=== PATIENT | male | born 1945 | race Hispanic/Latino ===

== ENCOUNTER 2018-08-31 15:33 | Emergency (ER) | payer MEDICARE, BC ==
[2018-08-31 15:46] VITALS: BP 101/62; RESP 18; O2SAT 98
[2018-08-31 16:01] VITALS: BMI 22.8
[2018-08-31 16:04] VITALS: PULSE 76; TEMP 98
--- NOTE | 2018-08-31 16:26 | ED PDOC ---
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 Patient hit his head on the fender of the car. He sustained a laceration above the right eye. Patient denies loss of consciousness, dizziness, chest pain, palpitation or any other injuries. PMD: Nelson Albert Past Medical History Reviewed: Historical Data, Nursing Documentation, Vital Signs Vital Signs: Last Vital Signs Temp 98 F 08/31/18 16:01 Pulse 76 08/31/18 16:01 Resp 18 08/31/18 16:01 BP 101/62 08/31/18 16:01 Pulse Ox 98 08/31/18 16:01 - Medical History PMH: Arthritis (OSTEO), Bronchitis, Diabetes, HTN, Hypercholesterolemia Denies: Hepatitis, HIV, Seizures, Sexually Transmitted Disease - Surgical History Surgical History: Cholecystectomy - Family History Family History: States: Unknown Family Hx - Social History Current smoker - smoking cessation education provided: No Alcohol: None Drugs: Denies - Immunization History Hx Tetanus Toxoid Vaccination: Yes (2 years ago) Hx Influenza Vaccination: Yes Hx Pneumococcal Vaccination: No - Home Medications Home Medications: Ambulatory Orders Medication Instructions Recorded Alprazolam [Xanax] 0.25 mg PO BID PRN #7 tab 10/06/14 Amlodipine Besylate and Benazepril 1 tab PO DAILY 10/06/14 HCl 5 mg-4 Clotrimazole 1% [Lotrimin AF 1%] 1 gm TP BID #2 bottle 10/06/14 Edluar 10 mg SL HS 10/06/14 Ferrous Fumarate/Folic Acid 1 tab PO DAILY 10/06/14 Glucophage 1,000 mg PO BID 10/06/14 Glucotrol XL 10 mg PO BID 10/06/14 Januvia 100 mg PO DAILY 10/06/14 Lantus 40 unit SC DAILY 10/06/14 Lyrica 100 mg PO BID 10/06/14 Meloxicam 15 mg PO DAILY 10/06/14 Naproxen EC 375 mg PO DAILY 10/06/14 Voltaren Gel 1 applic TOP DAILY 10/06/14 Vytorin 10 mg-40 mg 1 tab PO HS 10/06/14 Naproxen [Naprosyn Tab] 375 mg PO BID PRN #20 tab 12/08/16 - Allergies Allergies/Adverse Reactions: Allergies Allergy/AdvReac Type Severity Reaction Status Date / Time No Known Allergies Allergy Verified 08/31/18 16:01 Review of Systems ROS Statement: Except As Marked, All Systems Reviewed And Found Negative Cardiovascular: Negative for: Chest Pain, Palpitations Skin: Positive for: Other (laceration above the right eye) Neurological: Negative for: Dizziness, Other (LOC) Physical Exam - Reviewed Nursing Documentation Reviewed: Yes Vital Signs Reviewed: Yes - Physical Exam Appears: Positive for: Well, Non-toxic, No Acute Distress Head Exam: Positive for: ATRAUMATIC, NORMOCEPHALIC. Negative for: NORMAL INSPECTION (2cm laceration on right eyebrow, no palpable fracture ) Eye Exam: Positive for: EOMI, Normal appearance, PERRL Neck: Positive for: Normal, Painless ROM, Supple Cardiovascular/Chest: Positive for: Regular Rate, Rhythm. Negative for: Murmur Respiratory: Positive for: Normal Breath Sounds. Negative for: Decreased Breath Sounds, Wheezing, Respiratory Distress Back: Positive for: Normal Inspection (no spinal tenderness or deformity) Extremity: Positive for: Normal ROM, Other (no hip tenderness or deformity). Negative for: Deformity Neurologic/Psych: Positive for: Alert, Oriented (x3), Other (no focal deficits). Negative for: Motor/Sensory Deficits - ECG O2 Sat by Pulse Oximetry: 98 (RA) Pulse Ox Interpretation: Normal Medical Decision Making Medical Decision Making: Time: 1601 Initial Plan: Patient declined stitches so steri strips will be placed on the laceration on the right eyebrow. Provider also advised patient to have CT head, EKG as well as blood work to determine the reason for loss of balance and patient denied. He is awake, alert and oriented to time, place and person. Patient was made aware of the risk involved such as intracranial bleed, arrhythmia and possibly . There is agreement to discharge plan. Return to ED if symptoms persist or worsen. Scribe Attestation: Documented by Wong Singleton, acting as a scribe for Jamel Rocha MD. Provider Scribe Attestation: All medical record entries made by the Scribe were at my direction and personally dictated by me. I have reviewed the chart and agree that the record accurately reflects my personal performance of the history, physical exam, medical decision making, and the department course for this patient. I have also personally directed, reviewed, and agree with the discharge instructions and disposition. Disposition - Clinical Impression Clinical Impression: Facial laceration - Patient ED Disposition Is Patient to be Admitted: No Counseled Patient/Family Regarding: Diagnosis, Need For Followup - Disposition Referrals: Nelson Albert MD [Family Provider] - Disposition: Routine/Home Disposition Time: 16:44 Condition: FAIR Instructions: Wound Care, Preventing Falls in the Older Adult Forms: [employer] (Yoruba)
== END 2018-08-31 17:07 | disposition home or self-care (01) ==
LOC: H.ER 15:33
DX: S01.111A Laceration without foreign body of right eyelid and periocular area, initial encounter (principal); W22.8XXA Striking against or struck by other objects, initial encounter; Y92.89 Other specified places as the place of occurrence of the external cause; E11.9 Type 2 diabetes mellitus without complications; E78.00 Pure hypercholesterolemia, unspecified; I10 Essential (primary) hypertension; Z79.4 Long term (current) use of insulin

== ENCOUNTER 2018-10-18 16:07 | Inpatient (IN) | payer BC, MEDICARE ==
[2018-10-18 16:07] VITALS: BMI 22.8
[2018-10-18] MEDS ORDERED: Sodium Chloride 0.9% 1,000 ML IV STA ×2 (16:46→19:03)
--- NOTE | 2018-10-18 17:06 | ED PDOC ---
HPI: General Adult Time Seen by Provider: 10/18/18 16:21 Chief Complaint (Nursing): Flu-like Symptoms Chief Complaint (Provider): body pains History Per: Patient History/Exam Limitations: no limitations Onset/Duration Of Symptoms: Hrs (today) Current Symptoms Are (Timing): Still Present Additional Complaint(s): Noah Vick is a 73 year old male, with a past medical history of diabetes, HTN and rheumatoid arthritis, who was brought to the emergency department by EMS accompanied by spouse for evaluation of body aches onset today. Patient is complaining of neck pain and bilateral knee pain. Per , patient didn't take his medications yesterday and today. She tried to give him food but she states patient wasn't eating. Patient has been sleeping for the most part of the day and today she tried to get him up but he almost fell while trying to feed him due to the knee pain which prompted her to call the ambulance. Patient denies any cough, nausea, vomit, diarrhea, fall, trauma or head injuries. No further medical complaints. PMD: Nelson Albert Past Medical History Reviewed: Historical Data, Nursing Documentation, Vital Signs Vital Signs: Last Vital Signs Temp 101.8 F H 10/18/18 16:12 Pulse 128 H 10/18/18 16:12 Resp 16 10/18/18 16:12 BP 160/115 H 10/18/18 16:12 Pulse Ox 98 10/18/18 16:12 - Medical History PMH: Arthritis (OSTEO), Bronchitis, Diabetes, HTN, Hypercholesterolemia Denies: Hepatitis, HIV, Seizures, Sexually Transmitted Disease - Surgical History Surgical History: Cholecystectomy - Family History Family History: States: Unknown Family Hx - Social History Current smoker - smoking cessation education provided: No Alcohol: None Drugs: Denies - Immunization History Hx Tetanus Toxoid Vaccination: Yes (2 years ago) Hx Influenza Vaccination: Yes Hx Pneumococcal Vaccination: No - Home Medications Home Medications: Ambulatory Orders Medication Instructions Recorded RX: Amlodipine Besylate/Benazepril 1 tab PO DAILY 10/06/14 [Lotrel 10-40 mg Capsule] RX: Ezetimibe/Simvastatin [Vytorin 1 tab PO HS 10/06/14 10-20 mg Tablet] RX: MetFORMIN [glucoPHAGE] 1,000 mg PO BID 10/06/14 RX: Pregabalin [Lyrica] 150 mg PO Q12 10/06/14 RX: Cyanocobalamin [Vitamin B12 1,000 mcg PO DAILY 10/18/18 1000 mcg Tab] RX: Ergocalciferol (Vitamin D2) 50,000 unit PO MO 10/18/18 [Vitamin D2] RX: Linagliptin [Tradjenta] 5 mg PO DAILY 10/18/18 RX: Zolpidem [Ambien] 5 mg PO HS PRN 10/18/18 RX: Atorvastatin [Lipitor] 10 mg PO HS tab 10/24/18 RX: Enoxaparin [Lovenox] 40 mg SC DAILY syr 10/24/18 RX: Ezetimibe [Zetia] 10 mg PO HS tab 10/24/18 RX: GlipiZIDE SR [Glucotrol XL] 5 mg PO DAILY tab 10/24/18 RX: Lactobacillus Acidophilus 1 cap PO BID cap 10/24/18 [Bacid Acidophilus] RX: Lisinopril [Zestril] 40 mg PO DAILY tab 10/24/18 RX: Naproxen 500 mg PO Q12 tab 10/24/18 RX: Pantoprazole [Protonix Inj] 40 mg IVP DAILY vial 10/24/18 RX: amLODIPine [Norvasc] 10 mg PO DAILY tab 10/24/18 cefTRIAXone 1 gm [Rocephin 1 gram 1 gm IVPB DAILY 6 Days #6 bag 10/24/18 IVPB] - Allergies Allergies/Adverse Reactions: Allergies Allergy/AdvReac Type Severity Reaction Status Date / Time No Known Allergies Allergy Verified 08/31/18 16:01 Review of Systems ROS Statement: Except As Marked, All Systems Reviewed And Found Negative Respiratory: Negative for: Cough Gastrointestinal: Negative for: Nausea, Vomiting, Diarrhea Musculoskeletal: Positive for: Neck Pain, Leg Pain (knee pain) Physical Exam - Reviewed Nursing Documentation Reviewed: Yes Vital Signs Reviewed: Yes - Physical Exam Appears: Positive for: No Acute Distress. Negative for: Well (frail) Head Exam: Positive for: ATRAUMATIC, NORMAL INSPECTION, NORMOCEPHALIC Skin: Positive for: Normal Color, Warm, Dry Eye Exam: Positive for: Normal appearance, EOMI, PERRL Neck: Positive for: Normal, Painless ROM, Supple Cardiovascular/Chest: Positive for: Regular Rate, Rhythm. Negative for: Murmur Respiratory: Positive for: Normal Breath Sounds. Negative for: Respiratory Distress Gastrointestinal/Abdominal: Positive for: Normal Exam, Soft. Negative for: Tenderness, Guarding, Rebound Back: Positive for: Normal Inspection. Negative for: L CVA Tenderness, R CVA Tenderness, Vertebral Tenderness Extremity: Positive for: Tenderness (to bilateral knees), Swelling (with palpable fluid surrounding the knees). Negative for: Normal ROM (Limited movement) Neurologic/Psych: Positive for: Alert, Oriented. Negative for: Motor/Sensory Deficits - Laboratory Results Result Diagrams: 10/24/18 05:50 10/24/18 05:50 - ECG O2 Sat by Pulse Oximetry: 98 (RA) Pulse Ox Interpretation: Normal Medical Decision Making Medical Decision Making: Time: 16:21 Initial Impression: Infectious process vs exacerbation of rheumatoid arthritis and other infectious etiologies. Initial Plan: --CMP --Troponin I --CBC w/ differential --ESR --Chest two views (PA/LAT) [RAD] --Morphine 2 mg IVP --NaCl 1,000 ml IV 1,000 mls/hr --Influenza A B --Reevaluation 18:50 Lactate 2.2 WBC count 17. With tachycardia and fever on triage, potential sepsis identified at this time. Labs otherwise unremarkable. CXR shows no abnormalities however patient is febrile and tachycardic. Dr. Solis paged and IV fluids given. There is no source for infection at this time. Possible inflammatory response to rheumatoid arthritis. Patient is to be admitted due to inability to tolerate PO. Aztreanam ordered for sepsis of unknown source. 18:55 Went to discuss admission with patient and familly. Patient is now confused thinks he is in a [place].Will get CT brain. Consider L.P. if brain CT unremarkable. 19:[address] Solis who knows patient well. Agrees that delirium is unusual and agrees with workup for PEN TENDER infection. Will start Rocephin to cover for PEN TENDER infection. Family is aware. 19:[address] Barbosa for ICU consult. Consult placed. Scribe Attestation: Documented by Nick Poon, acting as a scribe for Citlali Palumbo MD Provider Scribe Attestation: All medical record entries made by the Scribe were at my direction and personally dictated by me. I have reviewed the chart and agree that the record accurately reflects my personal performance of the history, physical exam, medical decision making, and the department course for this patient. I have also personally directed, reviewed, and agree with the discharge instructions and disposition. Disposition - Clinical Impression Clinical Impression: Delirium, Effusion, right knee - Patient ED Disposition Is Patient to be Admitted: Transfer of Care - Disposition Disposition Time: 18:50 Condition: GOOD
[2018-10-18] MEDS ORDERED: Morphine 4 MG/ML VIAL IVP STA (17:26)
[2018-10-18] MEDS ORDERED: Morphine 4 MG/ML VIAL ONE (17:29)
[2018-10-18 17:31] LABS: BASO % 0.2 % (0.0-2.0); HEMOGLOBIN 14.4 g/dL (12.0-18.0); LYMPH # 0.7 K/uL (1.0-4.3); LYMPH % 3.8 % (20.0-40.0); MEAN CELL VOLUME 94.3 fl (80.0-94.0); MEAN CORPUSCULAR HEMOGLOBIN 31.1 pg (27.0-31.0); MEAN CORPUSCULAR HGB CONC 32.9 g/dL (33.0-37.0); MEAN PLATELET VOLUME 8.4 fl (7.2-11.7); MONO # 2.1 K/uL (0.0-0.8); MONO % 12.1 % (0.0-10.0); NEUT # 14.5 K/uL (1.8-7.0); NEUT % 83.9 % (50.0-75.0); PLATELET COUNT 302 K/uL (130-400); RBC 4.63 Mil/uL (4.40-5.90); RED CELL DISTRIBUTION WIDTH 13.3 % (11.5-14.5); WHITE BLOOD COUNT 17.3 K/uL (4.8-10.8)
[2018-10-18 17:40] LABS: ALB/GLOB RATIO 1.2 (1.0-2.1); ALBUMIN 4.1 g/dL (3.5-5.0); ALT/SGPT 18 U/L (21-72); AST/SGOT 31 U/L (17-59); BLOOD UREA NITROGEN 32 mg/dl (9-20); CALCIUM 9.7 mg/dL (8.4-10.2); GFR NON-AFRICAN AMERICAN 40
--- NOTE | 2018-10-18 18:07 | RAD ---
Date of service: 10/18/2018 HISTORY: cough COMPARISON: No prior. TECHNIQUE: Chest PA and lateral FINDINGS: LUNGS: No active pulmonary disease. PLEURA: No significant pleural effusion identified. No pneumothorax apparent. CARDIOVASCULAR: Aortic atherosclerotic calcifications. Cardiomediastinal silhouette at the upper limits of normal in size. OSSEOUS STRUCTURES: Spinal degenerative changes. VISUALIZED UPPER ABDOMEN: Normal. OTHER FINDINGS: None. IMPRESSION: No active disease.
[2018-10-18 18:17] LABS: ERYTHROCYTE SEDIMENTATION RATE 88 mm/hr (0-20)
[2018-10-18] MEDS ORDERED: Insulin Regular 100 units/ml SC STA (18:34)
[2018-10-18] MEDS ORDERED: Insulin Regular 100 units/ml ONE (18:41)
[2018-10-18 18:47] LABS: VENOUS BLOOD GAS BASE EXCESS -10.6 mmol/L (0.0-2.0); VENOUS BLOOD GAS PCO2 33 mmHg (40-60); VENOUS BLOOD GAS PO2 25 mm/Hg (30-55); VENOUS BLOOD PH 7.27 (7.32-7.43)
[2018-10-18] MEDS ORDERED: Aztreonam 1 GM in Sodium Chloride 0.9% 100 ML IVPB STA (18:48)
[2018-10-18 18:49] LABS: SQUAMOUS EPITHIAL 1 /hpf (0-5); URINE BACTERIA RARE (<OCC); URINE BILIRUBIN NEGATIVE (NEGATIVE); URINE BLOOD NEGATIVE (NEGATIVE); URINE CLARITY CLEAR (Clear); URINE COLOR YELLOW (YELLOW); URINE GLUCOSE (UA) 50 mg/dL (NEGATIVE); URINE LEUKOCYTE ESTERASE NEG Leu/uL (Negative); URINE PROTEIN 100 mg/dL (NEGATIVE); URINE UROBILINOGEN 0.2-1.0 mg/dL (0.2-1.0)
[2018-10-18] MEDS ORDERED: cefTRIAXone 2 GM in Sodium Chloride 0.9% 100 ML IVPB STA (18:59)
[2018-10-18 19:26] LABS: BANDS 2 % (0-2); HYPERSEGMENTATION PRESENT; LYMPHOCYTE 5 % (20-50); MONOCYTE 11 % (0-10); NEUTROPHIL 82 % (42-75); PLATELET ESTIMATE NORMAL (NORMAL); TOTAL CELLS COUNTED 100; TOXIC GRANULATION PRESENT
--- NOTE | 2018-10-18 19:27 | CP.PCM.CON ---
History of Present Illness - History of Present Illness History of Present Illness: PMD: Nelson Albert MD Reason for Consult: Critical care Management Chief Complaint:Flu like symptoms The Patient was seen and examined in the ED HPI: The Hx is obtained from the patient,s family as he responds with shaking the head or mono-syllable. This is a 73 years old male with hx of DM II, HTN and Rheumatoid Arthritis for which he takes Tramadol. He was brought to the ED with 2 days of generalized weakness, not eating,body aches, somnolence, Bilateral knee and neck pain. No complaint of cough, nausea, vomits, diarrhea, urinary symptoms. In the ED he was found to have a temperature of 101.8F. PMH: Arthritis (OSTEO), Bronchitis, DM II, HTN, HLD; RA PSH: Cholecystectomy; Right inguinal hernia repair SH: Never Smoked, No Alcohol, No illegal drug use, Live with family FH: No known family hx Allergies: NKDA Medication: Reviewed Review of Systems - Review of Systems Review of Systems: Review of systems is limited because of poor communication by the patient. - Constitutional Constitutional: Anorexia. absent: Headache, Malaise - EENT Eyes: absent: Blurred Vision Ears: absent: Decreased Hearing - Respiratory Respiratory: absent: Cough, Dyspnea - Gastrointestinal Gastrointestinal: absent: Abdominal Pain, Diarrhea - Genitourinary Genitourinary: absent: Dysuria - Hematologic/Lymphatic Hematologic: absent: Easy Bleeding, Easy Bruising Past Patient History - Infectious Disease Hx of Infectious Diseases: None - Past Medical History & Family History Past Medical History?: Yes - Past Social History Smoking Status: Never Smoked Chewing Tobacco Use: No Cigar Use: No Alcohol: None Drugs: Denies Home Situation {Lives}: With Family - CARDIAC Hx Hypercholesterolemia: Yes Hx Hypertension: Yes - PULMONARY Hx Bronchitis: Yes - NEUROLOGICAL Hx Seizures: No - RENAL Hx Chronic Kidney Disease: No - ENDOCRINE/METABOLIC Hx Diabetes Mellitus Type 2: Yes - HEMATOLOGICAL/ONCOLOGICAL Hx Blood Disorders: No Hx Human Immunodeficiency Virus (HIV): No - INTEGUMENTARY Hx Dermatological Problems: No - MUSCULOSKELETAL/RHEUMATOLOGICAL Hx Arthritis: Yes (OSTEO) - GASTROINTESTINAL Hx Gastrointestinal Disorders: No Other/Comment: Rt. abdominal hernia - GENITOURINARY/GYNECOLOGICAL Hx Sexually Transmitted Disorders: No - PSYCHIATRIC Hx Substance Use: No - SURGICAL HISTORY Hx Cholecystectomy: Yes - ANESTHESIA Hx Anesthesia: Yes Hx Anesthesia Reactions: No Meds Allergies/Adverse Reactions: Allergies Allergy/AdvReac Type Severity Reaction Status Date / Time No Known Allergies Allergy Verified 08/31/18 16:01 - Medications Medications: Current Medications Ceftriaxone Sodium 2 gm/ (Sodium Chloride) 100 mls @ 100 mls/hr IVPB STAT STA; Protocol Stop: 10/18/18 19:58 Sodium Chloride (Sodium Chloride 0.9%) 1,000 mls @ 1,000 mls/hr IV .Q1H STA Stop: 10/18/18 20:02 Vancomycin HCl 1 gm/ Sodium (Chloride) 250 mls @ 166.667 mls/hr IVPB DAILY MICHAELA; Protocol Physical Exam - Constitutional Appears: No Acute Distress - Head Exam Head Exam: ATRAUMATIC, NORMAL INSPECTION, NORMOCEPHALIC - Eye Exam Eye Exam: EOMI, Normal appearance Pupil Exam: NORMAL ACCOMODATION, PERRL - ENT Exam ENT Exam: Mucous Membranes Dry, Normal Exam - Neck Exam Neck exam: Positive for: Full Rom, Normal Inspection. Negative for: Lymphadenopathy, Tenderness - Respiratory Exam Respiratory Exam: Clear to Auscultation Bilateral. absent: Rales, Rhonchi, Wheezes - Cardiovascular Exam Cardiovascular Exam: REGULAR RHYTHM, RRR, +S1, +S2 - GI/Abdominal Exam GI & Abdominal Exam: Normal Bowel Sounds, Soft. absent: Mass, Organomegaly, Tenderness - Rectal Exam Rectal Exam: Deferred - Extremities Exam Extremities exam: Positive for: full ROM, normal inspection. Negative for: calf tenderness, joint swelling, pedal edema - Back Exam Back exam: NORMAL INSPECTION. absent: CVA tenderness (L), CVA tenderness (R) - Neurological Exam Neurological exam: Alert, CN II-XII Intact, Oriented x3, Reflexes Normal - Psychiatric Exam Psychiatric exam: Flat Affect - Skin Skin Exam: Dry, Intact, Normal Color, Warm Results - Vital Signs Recent Vital Signs: Last Vital Signs Temp 101.8 F H 10/18/18 16:12 Pulse 128 H 10/18/18 16:12 Resp 16 10/18/18 16:12 BP 160/115 H 10/18/18 16:12 Pulse Ox 98 10/18/18 19:13 - Labs Result Diagrams: 10/19/18 05:25 10/18/18 17:15 Labs: Laboratory Results - last 24 hr 0110/18/18 10/18/18 16:27 17:15 17:15 WBC 17.3 H RBC 4.63 Hgb 14.4 Hct 43.6 MCV 94.3 H MCH 31.1 H MCHC 32.9 L RDW 13.3 Plt Count 302 MPV 8.4 Neut % (Auto) 83.9 H Lymph % (Auto) 3.8 L Moore % (Auto) 12.1 H Eos % (Auto) 0.0 Baso % (Auto) 0.2 Neut # (Auto) 14.5 H Lymph # (Auto) 0.7 L Moore # (Auto) 2.1 H Eos # (Auto) 0.0 Baso # (Auto) 0.0 Neutrophils % (Manual) 82 H Band Neutrophils % 2 Lymphocytes % (Manual) 5 L Monocytes % (Manual) 11 H Hypersegmented Polys Present Toxic Granulation Present Platelet Estimate Normal ESR 88 H pO2 VBG pH VBG pCO2 VBG HCO3 VBG Total CO2 VBG O2 Sat (Calc) VBG Base Excess VBG Potassium Glucose Lactate FiO2 Sodium 138 Potassium 5.6 H Chloride 102 Carbon Dioxide 19 L Anion Gap 23 H BUN 32 H Creatinine 1.7 H Est GFR ( Amer) 48 Est GFR (Non-Af Amer) 40 POC Glucose (mg/dL) 254 H Random Glucose 267 H Calcium 9.7 Total Bilirubin 1.5 H AST 31 ALT 18 L Alkaline Phosphatase 106 Troponin I < 0.0120 Total Protein 7.6 Albumin 4.1 Globulin 3.5 Albumin/Globulin Ratio 1.2 Venous Blood Potassium Urine Color Urine Clarity Urine pH Ur Specific Manquin Urine Protein Urine Glucose (UA) Urine Ketones Urine Blood Urine Nitrate Urine Bilirubin Urine Urobilinogen Ur Leukocyte Esterase Urine RBC (Auto) Urine Microscopic WBC Ur Squamous Epith Cells Urine Bacteria Influenza Typ A,B (EIA) 10/18/18 10/18/18 10/18/18 17:15 18:33 18:33 WBC RBC Hgb Hct MCV MCH MCHC RDW Plt Count MPV Neut % (Auto) Lymph % (Auto) Moore % (Auto) Eos % (Auto) Baso % (Auto) Neut # (Auto) Lymph # (Auto) Moore # (Auto) Eos # (Auto) Baso # (Auto) Neutrophils % (Manual) Band Neutrophils % Lymphocytes % (Manual) Monocytes % (Manual) Hypersegmented Polys Toxic Granulation Platelet Estimate ESR pO2 25 L VBG pH 7.27 L VBG pCO2 33 L VBG HCO3 15.0 VBG Total CO2 16.2 L VBG O2 Sat (Calc) 43.4 VBG Base Excess -10.6 L VBG Potassium 4.7 Glucose 275 H Lactate 2.2 H FiO2 21.0 Sodium 136.0 Potassium Chloride 107.0 Carbon Dioxide Anion Gap BUN Creatinine Est GFR ( Amer) Est GFR (Non-Af Amer) POC Glucose (mg/dL) Random Glucose Calcium Total Bilirubin AST ALT Alkaline Phosphatase Troponin I Total Protein Albumin Globulin Albumin/Globulin Ratio Venous Blood Potassium 4.7 Urine Color Yellow Urine Clarity Clear Urine pH 5.0 Ur Specific Manquin 1.014 Urine Protein 100 Urine Glucose (UA) 50 Urine Ketones 20 Urine Blood Negative Urine Nitrate Negative Urine Bilirubin Negative Urine Urobilinogen 0.2-1.0 Ur Leukocyte Esterase Neg Urine RBC (Auto) 3 Urine Microscopic WBC < 1 Ur Squamous Epith Cells 1 Urine Bacteria Rare Influenza Typ A,B (EIA) Negative for flu a/b - Imaging and Cardiology Chest x-ray Status: Image reviewed by me, Report reviewed by me Additional comment: No active disease CT scan - head Status: Image reviewed by me Additional comment: No hemorrhage, masses nor acute pathology Assessment & Plan - Assessment and Plan (Free Text) Assessment: #.r/o Sepsis #. Acute Kidney Disease #. Hypperkalemia #. DM II with hyperglycemia #. Metabolic Acidosis #. HTN #. Osteoarthritis Plan: 73 years old male with hx of DM II, HTN and Rheumatoid Arthritis for which he takes Tramadol. He was brought to the ED with 2 days of generalized weakness, not eating,body aches, somnolence, Bilateral knee and neck pain. No complaint of cough, nausea, vomits, diarrhea, urinary symptoms. In the ED he was found to have a temperature of 101.8F. #. r/o Sepsis in patient with fever, tachycardia, leukocytosis, mild elevation in Lactic Acid with mild disorientation. - Consult ID - Blood culture - Urine culture - Chest X Ray shows no active disease - Emperical antibiotics Vancomycin and Ceftriazone #. Acute Kidney Disease from poor intake - IV Fluids _ Follow Renal labs #. Hyperkalemia as a result of the Metabolic acidosis - Treat Hyperglycemia - Follow Potassium #. DM II with hyperglycemia and mild Ketoacidosis - IV Fluid - Lispro sliding scale according to accucheck - Glucotrol - HbA1c #. Metabolic Acidosis due to increased Lactic acid and ketones - IV fluids and treat Hyperglycemia and renal failure #. HTN - Amlodipine #. Osteoarthritis - Pain management #DVT prophylaxis with lovenox #. Code Status: Full - Date & Time Date: 10/18/18 Time: 19:27
[2018-10-18 20:18] LABS: GRANULAR CAST 1 /lpf (0-1); SQUAMOUS EPITHIAL 1 /hpf (0-5); URINE BILIRUBIN NEGATIVE (NEGATIVE); URINE BLOOD NEGATIVE (NEGATIVE); URINE CLARITY CLEAR (Clear); URINE COLOR YELLOW (YELLOW); URINE GLUCOSE (UA) 50 mg/dL (NEGATIVE); URINE HYALINE CAST 0-2 /hpf (0-2); URINE LEUKOCYTE ESTERASE NEG Leu/uL (Negative); URINE PROTEIN 100 mg/dL (NEGATIVE); URINE UROBILINOGEN 0.2-1.0 mg/dL (0.2-1.0)
[2018-10-18] MEDS ORDERED: EZETIMIBE PO SCH (22:00)
[2018-10-18] MEDS ORDERED: SIMVASTATIN PO SCH (22:00)
[2018-10-18] MEDS: Insulin Lispro (humaLOG) 100 Units/ml Inj SC SCH (23:37)
[2018-10-19] MEDS: Sodium Chloride 0.9% 1,000 ML IV SCH ×3 (00:06→21:54)
[2018-10-19] MEDS ORDERED: Insulin Lispro (humaLOG) 100 Units/ml Inj SC STA ×2 (01:42→21:58)
[2018-10-19 05:51] LABS: BASO # 0.1 K/uL (0.0-0.2); BASO % 0.8 % (0.0-2.0); HEMOGLOBIN 12.5 g/dL (12.0-18.0); MEAN CELL VOLUME 93.9 fl (80.0-94.0); MEAN CORPUSCULAR HEMOGLOBIN 31.1 pg (27.0-31.0); MEAN CORPUSCULAR HGB CONC 33.1 g/dL (33.0-37.0); MEAN PLATELET VOLUME 8.6 fl (7.2-11.7); MONO # 2.2 K/uL (0.0-0.8); MONO % 18.4 % (0.0-10.0); NEUT # 8.9 K/uL (1.8-7.0); NEUT % 72.8 % (50.0-75.0); RBC 4.02 Mil/uL (4.40-5.90); RED CELL DISTRIBUTION WIDTH 13.1 % (11.5-14.5); WHITE BLOOD COUNT 12.2 K/uL (4.8-10.8)
[2018-10-19 06:21] LABS: CALCIUM 9.2 mg/dL (8.4-10.2)
[2018-10-19 07:17] LABS: VENOUS BLOOD GAS BASE EXCESS -4.5 mmol/L (0.0-2.0); VENOUS BLOOD GAS PCO2 36 mmHg (40-60); VENOUS BLOOD GAS PO2 37 mm/Hg (30-55); VENOUS BLOOD PH 7.36 (7.32-7.43)
[2018-10-19] MEDS: Insulin Lispro (humaLOG) 100 Units/ml Inj SC SCH ×4 (07:18→21:59)
--- NOTE | 2018-10-19 07:19 | CARD ---
APPROVED REPORT Date of service: 10/18/2018 EKG Measurement Heart [id number] <Conclusion> Normal sinus rhythm Right bundle branch block Abnormal ECG
[2018-10-19] MEDS: GlipiZIDE 10 mg SR Tab PO SCH ×2 (08:50→17:12)
[2018-10-19] MEDS: Enoxaparin 40 mg Syringe SC SCH (08:51)
[2018-10-19] MEDS ORDERED: cefTRIAXone 2 GM in Sodium Chloride 0.9% 100 ML IVPB SCH (09:00)
--- NOTE | 2018-10-19 09:28 | CT ---
Date of service: 10/18/2018 PROCEDURE: CT HEAD WITHOUT CONTRAST. HISTORY: AMS COMPARISON: No prior study available comparison. The the TECHNIQUE: Axial computed tomography images were obtained through the head/brain without intravenous contrast. Radiation dose: Total exam DLP = 789.1 mGy-cm. This CT exam was performed using one or more of the following dose reduction techniques: Automated exposure control, adjustment of the mA and/or kV according to patient size, and/or use of iterative reconstruction technique. FINDINGS: HEMORRHAGE: No acute parenchymal, subarachnoid or extra-axial hemorrhage. BRAIN: Mild chronic periventricular white matter ischemic changes seen extending peripherally into the deep and subcortical white matter both cerebral hemispheres. There may also be a few tiny chronic scattered chronic lacunar infarcts scattered about both basal nuclei. Moderate generalized volume loss. Vascular calcifications both carotid siphons and vertebral arteries. VENTRICLES: No obstructive hydrocephalus CALVARIUM: Calvarium intact. PARANASAL SINUSES: Mild mucosal thickening seen within a few ethmoid air cells and inferior aspect frontal sinus. MASTOID AIR CELLS: Unremarkable as visualized. No inflammatory changes. OTHER FINDINGS: None. IMPRESSION: Mild chronic white matter ischemic changes with suspected few bilateral basal nuclei lacunar type infarcts. The No acute intracranial hemorrhage. Moderate generalized volume loss.
--- NOTE | 2018-10-19 09:52 | CP.PCM.PCO ---
Addendum Addendum: Interim Physician Notes, Labs, Imaging reviewed. Overall improvement since admission overnight into ICU, observed sitting up in bed, able to feed himself during breakfast, appears non-distressed, conversant. Hemodynamics / oxygenation stable and showed no deterioration since ICU admission. He does still complain of neck discomfort, and knee pains, unable to specify further, ?? sequelae of near-fall at home. Lactates have normalized, WBC improved, as well as Azotemia /hyperkalemia. Empiric Vanco and Rocephin started. Stable for stepdown bed or regular med/surg bed for further mgmt.
--- NOTE | 2018-10-19 11:39 | MRI ---
Date of service: 10/19/2018 PROCEDURE: MRI BRAIN WITHOUT CONTRAST HISTORY: Rule out meningitis COMPARISON: Comparison made with CT scan brain 10/18/2018. TECHNIQUE: Multiplanar, multisequence MR images of the brain were obtained without intravenous contrast enhancement. FINDINGS: HEMORRHAGE: No acute parenchymal, subarachnoid nor extra-axial hemorrhage. No evidence of hemosiderin deposition is identified on gradient echo weighted sequence. DWI: No evidence of an acute or early subacute infarction on diffusion imaging.. BRAIN PARENCHYMA: Redemonstrated to better advantage are mild chronic periventricular white matter ischemic changes which extend peripherally into the deep and to a lesser degree subcortical white matter both cerebral hemispheres. Multiple more discrete chronic appearing lacunar type infarcts also seen scattered about the deep and subcortical white matter bilaterally including the superior basal ganglia/coronal radiata junction regions.. None of these changes exhibit restricted diffusion. Moderate generalized volume loss. VENTRICLES: No obstructive hydrocephalus. CRANIUM: Calvarium appears intact ORBITS: Orbits and contents unremarkable. PARANASAL SINUSES/MASTOIDS: Minor mucosal thickening seen within the ethmoid air complex VASCULAR SYSTEM: Visualized major vascular flow voids at skull base patent. OTHER FINDINGS: None. IMPRESSION: No acute intracranial hemorrhage. No evidence of acute infarct. Mild chronic white matter and basal ganglia ischemic changes.
--- NOTE | 2018-10-19 12:05 | CP.PCM.HP ---
History of Present Illness - History of Present Illness History of Present Illness: 73 Y/O male presented in ER with fever, neck stiffness, altered consciousness, irritability x one day. PMHx of DM 2, severe OA, large abdominal hernia. Present on Admission - Present on Admission Any Indicators Present on Admission: No Review of Systems - Review of Systems Systems not reviewed;Unavailable: Altered Mental Status - Constitutional Constitutional: As Per HPI - Cardiovascular Cardiovascular: As Per HPI - Respiratory Respiratory: As Per HPI - Gastrointestinal Gastrointestinal: As Per HPI - Musculoskeletal Musculoskeletal: As Per HPI - Integumentary Integumentary: As Per HPI - Neurological Neurological: As Per HPI - Psychiatric Psychiatric: As Per HPI - Endocrine Endocrine: As Per HPI - Hematologic/Lymphatic Hematologic: As Per HPI Past Patient History - Infectious Disease Hx of Infectious Diseases: None - Past Medical History & Family History Past Medical History?: Yes - Past Social History Smoking Status: Never Smoked Chewing Tobacco Use: No Cigar Use: No Alcohol: None Drugs: Denies Home Situation {Lives}: With Family - CARDIAC Hx Hypercholesterolemia: Yes Hx Hypertension: Yes - PULMONARY Hx Bronchitis: Yes - NEUROLOGICAL Hx Seizures: No - HEENT Hx Blind: No Hx Difficulty Chewing: No Hx Glaucoma: No Hx Macular Degeneration: No - RENAL Hx Chronic Kidney Disease: No - ENDOCRINE/METABOLIC Hx Diabetes Mellitus Type 2: Yes - HEMATOLOGICAL/ONCOLOGICAL Hx Blood Disorders: No Hx Human Immunodeficiency Virus (HIV): No - INTEGUMENTARY Hx Dermatological Problems: No - MUSCULOSKELETAL/RHEUMATOLOGICAL Hx Arthritis: Yes (OSTEO) - GASTROINTESTINAL Hx Gastrointestinal Disorders: No Other/Comment: Rt. abdominal hernia - GENITOURINARY/GYNECOLOGICAL Hx Sexually Transmitted Disorders: No - PSYCHIATRIC Hx Substance Use: No - SURGICAL HISTORY Hx Cholecystectomy: Yes - ANESTHESIA Hx Anesthesia: Yes Hx Anesthesia Reactions: No Meds Allergies/Adverse Reactions: Allergies Allergy/AdvReac Type Severity Reaction Status Date / Time No Known Allergies Allergy Verified 08/31/18 16:01 Physical Exam - Constitutional Appears: Confused, Chronically Ill - Head Exam Head Exam: ATRAUMATIC, NORMAL INSPECTION, NORMOCEPHALIC - Eye Exam Eye Exam: Normal appearance - ENT Exam ENT Exam: Mucous Membranes Moist - Neck Exam Additional comments: neck stiffness - Respiratory Exam Respiratory Exam: Decreased Breath Sounds - Cardiovascular Exam Cardiovascular Exam: REGULAR RHYTHM, +S1 - GI/Abdominal Exam GI & Abdominal Exam: Normal Bowel Sounds Additional comments: large hernia - Rectal Exam Rectal Exam: Deferred - Extremities Exam Extremities exam: Positive for: normal inspection - Neurological Exam Neurological exam: Altered Additional comments: at times lethargic - Psychiatric Exam Psychiatric exam: Flat Affect - Skin Skin Exam: Pallor Results - Vital Signs Recent Vital Signs: Last Vital Signs Temp 99.2 F 10/19/18 08:00 Pulse 94 H 10/19/18 08:51 Resp 23 10/19/18 08:00 BP 151/73 H 10/19/18 08:51 Pulse Ox 96 10/19/18 08:00 - Labs Result Diagrams: 10/19/18 05:25 10/19/18 05:25 Labs: Laboratory Results - last 24 hr 10/18/18 10/18/18 10/18/18 16:27 17:15 17:15 WBC 17.3 H RBC 4.63 Hgb 14.4 Hct 43.6 MCV 94.3 H MCH 31.1 H MCHC 32.9 L RDW 13.3 Plt Count 302 MPV 8.4 Neut % (Auto) 83.9 H Lymph % (Auto) 3.8 L [place] % (Auto) 12.1 H Eos % (Auto) 0.0 Baso % (Auto) 0.2 Neut # (Auto) 14.5 H Lymph # (Auto) 0.7 L [place] # (Auto) 2.1 H Eos # (Auto) 0.0 Baso # (Auto) 0.0 Neutrophils % (Manual) 82 H Band Neutrophils % 2 Lymphocytes % (Manual) 5 L Monocytes % (Manual) 11 H Hypersegmented Polys Present Toxic Granulation Present Platelet Estimate Normal ESR 88 H pO2 VBG pH VBG pCO2 VBG HCO3 VBG Total CO2 VBG O2 Sat (Calc) VBG Base Excess VBG Potassium Glucose Lactate FiO2 Sodium 138 Potassium 5.6 H Chloride 102 Carbon Dioxide 19 L Anion Gap 23 H BUN 32 H Creatinine 1.7 H Est GFR ( Amer) 48 Est GFR (Non-Af Amer) 40 POC Glucose (mg/dL) 254 H Random Glucose 267 H Lactic Acid Calcium 9.7 Total Bilirubin 1.5 H AST 31 ALT 18 L Alkaline Phosphatase 106 Ammonia Troponin I < 0.0120 Total Protein 7.6 Albumin 4.1 Globulin 3.5 Albumin/Globulin Ratio 1.2 Venous Blood Potassium Urine Color Urine Clarity Urine pH Ur Specific [place] Urine Protein Urine Glucose (UA) Urine Ketones Urine Blood Urine Nitrate Urine Bilirubin Urine Urobilinogen Ur Leukocyte Esterase Urine RBC (Auto) Urine Microscopic WBC Ur Squamous Epith Cells Urine Bacteria Hyaline Casts Granular Casts (Auto) Influenza Typ A,B (EIA) 10/18/18 10/18/18 10/18/18 17:15 18:33 18:33 WBC RBC Hgb Hct MCV MCH MCHC RDW Plt Count MPV Neut % (Auto) Lymph % (Auto) [place] % (Auto) Eos % (Auto) Baso % (Auto) Neut # (Auto) Lymph # (Auto) [place] # (Auto) Eos # (Auto) Baso # (Auto) Neutrophils % (Manual) Band Neutrophils % Lymphocytes % (Manual) Monocytes % (Manual) Hypersegmented Polys Toxic Granulation Platelet Estimate ESR pO2 25 L VBG pH 7.27 L VBG pCO2 33 L VBG HCO3 15.0 VBG Total CO2 16.2 L VBG O2 Sat (Calc) 43.4 VBG Base Excess -10.6 L VBG Potassium 4.7 Glucose 275 H Lactate 2.2 H FiO2 21.0 Sodium 136.0 Potassium Chloride 107.0 Carbon Dioxide Anion Gap BUN Creatinine Est GFR ( Amer) Est GFR (Non-Af Amer) POC Glucose (mg/dL) Random Glucose Lactic Acid Calcium Total Bilirubin AST ALT Alkaline Phosphatase Ammonia Troponin I Total Protein Albumin Globulin Albumin/Globulin Ratio Venous Blood Potassium 4.7 Urine Color Yellow Urine Clarity Clear Urine pH 5.0 Ur Specific [place] 1.014 Urine Protein 100 Urine Glucose (UA) 50 Urine Ketones 20 Urine Blood Negative Urine Nitrate Negative Urine Bilirubin Negative Urine Urobilinogen 0.2-1.0 Ur Leukocyte Esterase Neg Urine RBC (Auto) 3 Urine Microscopic WBC < 1 Ur Squamous Epith Cells 1 Urine Bacteria Rare Hyaline Casts Granular Casts (Auto) Influenza Typ A,B (EIA) Negative for flu a/b 10/18/18 10/18/18 10/18/18 19:39 21:15 21:17 WBC RBC Hgb Hct MCV MCH MCHC RDW Plt Count MPV Neut % (Auto) Lymph % (Auto) [place] % (Auto) Eos % (Auto) Baso % (Auto) Neut # (Auto) Lymph # (Auto) [place] # (Auto) Eos # (Auto) Baso # (Auto) Neutrophils % (Manual) Band Neutrophils % Lymphocytes % (Manual) Monocytes % (Manual) Hypersegmented Polys Toxic Granulation Platelet Estimate ESR pO2 VBG pH VBG pCO2 VBG HCO3 VBG Total CO2 VBG O2 Sat (Calc) VBG Base Excess VBG Potassium Glucose Lactate FiO2 Sodium Potassium Chloride Carbon Dioxide Anion Gap BUN Creatinine Est GFR ( Amer) Est GFR (Non-Af Amer) POC Glucose (mg/dL) 283 H Random Glucose Lactic Acid Calcium Total Bilirubin AST ALT Alkaline Phosphatase Ammonia 9 L Troponin I Total Protein Albumin Globulin Albumin/Globulin Ratio Venous Blood Potassium Urine Color Yellow Urine Clarity Clear Urine pH 5.0 Ur Specific [place] 1.014 Urine Protein 100 Urine Glucose (UA) 50 Urine Ketones 20 Urine Blood Negative Urine Nitrate Negative Urine Bilirubin Negative Urine Urobilinogen 0.2-1.0 Ur Leukocyte Esterase Neg Urine RBC (Auto) 1 Urine Microscopic WBC < 1 Ur Squamous Epith Cells 1 Urine Bacteria Hyaline Casts 0-2 Granular Casts (Auto) 1 Influenza Typ A,B (EIA) 10/18/18 10/19/18 10/19/18 22:55 01:33 04:00 WBC RBC Hgb Hct MCV MCH MCHC RDW Plt Count MPV Neut % (Auto) Lymph % (Auto) [place] % (Auto) Eos % (Auto) Baso % (Auto) Neut # (Auto) Lymph # (Auto) [place] # (Auto) Eos # (Auto) Baso # (Auto) Neutrophils % (Manual) Band Neutrophils % Lymphocytes % (Manual) Monocytes % (Manual) Hypersegmented Polys Toxic Granulation Platelet Estimate ESR pO2 37 VBG pH 7.36 VBG pCO2 36 L VBG HCO3 20.7 VBG Total CO2 21.4 L VBG O2 Sat (Calc) 73.2 H VBG Base Excess -4.5 L VBG Potassium 4.3 Glucose 144 H Lactate 2.0 FiO2 21.0 Sodium 137.0 Potassium Chloride 110.0 H Carbon Dioxide Anion Gap BUN Creatinine Est GFR ( Amer) Est GFR (Non-Af Amer) POC Glucose (mg/dL) 250 H 271 H Random Glucose Lactic Acid Calcium Total Bilirubin AST ALT Alkaline Phosphatase Ammonia Troponin I Total Protein Albumin Globulin Albumin/Globulin Ratio Venous Blood Potassium 4.3 Urine Color Urine Clarity Urine pH Ur Specific [place] Urine Protein Urine Glucose (UA) Urine Ketones Urine Blood Urine Nitrate Urine Bilirubin Urine Urobilinogen Ur Leukocyte Esterase Urine RBC (Auto) Urine Microscopic WBC Ur Squamous Epith Cells Urine Bacteria Hyaline Casts Granular Casts (Auto) Influenza Typ A,B (EIA) 10/19/18 10/19/18 10/19/18 05:25 05:25 06:28 WBC 12.2 H RBC 4.02 L Hgb 12.5 Hct 37.8 MCV 93.9 MCH 31.1 H MCHC 33.1 RDW 13.1 Plt Count 252 MPV 8.6 Neut % (Auto) 72.8 Lymph % (Auto) 8.0 L [place] % (Auto) 18.4 H Eos % (Auto) 0.0 Baso % (Auto) 0.8 Neut # (Auto) 8.9 H Lymph # (Auto) 1.0 [place] # (Auto) 2.2 H Eos # (Auto) 0.0 Baso # (Auto) 0.1 Neutrophils % (Manual) Band Neutrophils % Lymphocytes % (Manual) Monocytes % (Manual) Hypersegmented Polys Toxic Granulation Platelet Estimate ESR pO2 VBG pH VBG pCO2 VBG HCO3 VBG Total CO2 VBG O2 Sat (Calc) VBG Base Excess VBG Potassium Glucose Lactate FiO2 Sodium 141 Potassium 4.2 Chloride 109 H Carbon Dioxide 20 L Anion Gap 16 BUN 31 H Creatinine 1.6 H Est GFR ( Amer) 52 Est GFR (Non-Af Amer) 43 POC Glucose (mg/dL) 112 H Random Glucose 156 H Lactic Acid Calcium 9.2 Total Bilirubin AST ALT Alkaline Phosphatase Ammonia Troponin I Total Protein Albumin Globulin Albumin/Globulin Ratio Venous Blood Potassium Urine Color Urine Clarity Urine pH Ur Specific [place] Urine Protein Urine Glucose (UA) Urine Ketones Urine Blood Urine Nitrate Urine Bilirubin Urine Urobilinogen Ur Leukocyte Esterase Urine RBC (Auto) Urine Microscopic WBC Ur Squamous Epith Cells Urine Bacteria Hyaline Casts Granular Casts (Auto) Influenza Typ A,B (EIA) 10/19/18 10/19/18 10/19/18 08:37 08:37 11:27 WBC RBC Hgb Hct MCV MCH MCHC RDW Plt Count MPV Neut % (Auto) Lymph % (Auto) [place] % (Auto) Eos % (Auto) Baso % (Auto) Neut # (Auto) Lymph # (Auto) [place] # (Auto) Eos # (Auto) Baso # (Auto) Neutrophils % (Manual) Band Neutrophils % Lymphocytes % (Manual) Monocytes % (Manual) Hypersegmented Polys Toxic Granulation Platelet Estimate ESR 94 H pO2 VBG pH VBG pCO2 VBG HCO3 VBG Total CO2 VBG O2 Sat (Calc) VBG Base Excess VBG Potassium Glucose Lactate FiO2 Sodium Potassium Chloride Carbon Dioxide Anion Gap BUN Creatinine Est GFR ( Amer) Est GFR (Non-Af Amer) POC Glucose (mg/dL) 235 H Random Glucose Lactic Acid 1.3 Calcium Total Bilirubin AST ALT Alkaline Phosphatase Ammonia Troponin I Total Protein Albumin Globulin Albumin/Globulin Ratio Venous Blood Potassium Urine Color Urine Clarity Urine pH Ur Specific [place] Urine Protein Urine Glucose (UA) Urine Ketones Urine Blood Urine Nitrate Urine Bilirubin Urine Urobilinogen Ur Leukocyte Esterase Urine RBC (Auto) Urine Microscopic WBC Ur Squamous Epith Cells Urine Bacteria Hyaline Casts Granular Casts (Auto) Influenza Typ A,B (EIA) Assessment & Plan (1) Encephalopathy acute Status: Acute (2) Delirium Status: Acute (3) Diabetes 1.5, managed as type 2 Status: Acute (4) Hernia of abdominal wall Status: Acute - Assessment and Plan (Free Text) Plan: orders.
--- NOTE | 2018-10-19 14:08 | CP.PCM.CON ---
History of Present Illness - History of Present Illness History of Present Illness: 73 years old male with hx of DM II, HTN and Rheumatoid Arthritis was brought to the ED with 2 days of generalized weakness, not eating,body aches, somnolence, Bilateral knee and neck pain. . In the ED he was found to have a temperature of 101.8F. ID consult requeste d for possible meningitis Patient more awake today denies headache c/o pain in knees- both knees swollen and tender PMH: Arthritis , Bronchitis, DM II, HTN, HLD; RA PSH: Cholecystectomy; Right inguinal hernia repair SH: Never Smoked, No Alcohol, No illegal drug use, Live with family FH: No known family hx Allergies: NKDA Review of Systems - Review of Systems Systems not reviewed;Unavailable: Altered Mental Status All systems: reviewed and no additional remarkable complaints except - Constitutional Constitutional: As Per HPI, Anorexia, Chills, Fever, Malaise - EENT Eyes: absent: As Per HPI, Blind Spots, Blurred Vision, Change in Vision, Decreased Night Vision, Diplopia, Discharge, Dry Eye, Exophthalmos, Floaters, Irritation, Itchy Eyes, Loss of Peripheral Vision, Pain, Photophobia, Requires Corrective Lenses, Sees Flashes, Spots in Vision, Tunnel Vision, Other Visual Disturbances, Loss of Vision, Other Ears: absent: As Per HPI, Decreased Hearing, Ear Discharge, Ear Pain, Tinnitus, Abnormal Hearing, Disequilibrium, Dizziness, Other Nose/Mouth/Throat: absent: As Per HPI, Epistaxis, Nasal Congestion, Nasal Discharge, Nasal Obstruction, Nasal Trauma, Nose Pain, Post Nasal Drip, Sinus Pain, Sinus Pressure, Bleeding Gums, Change in Voice, Dental Pain, Dry Mouth, Dysphagia, Halitosis, Hoarsness, Lip Swelling, Mouth Lesions, Mouth Pain, Odynophagia, Sore Throat, Throat Swelling, Tongue Swelling, Facial Pain, Neck Pain, Neck Mass, Other - Cardiovascular Cardiovascular: absent: As Per HPI, Acrocyanosis, Chest Pain, Chest Pain at Re st, Chest Pain with Activity, Claudication, Diaphoresis, Dyspnea, Dyspnea on Exertion, Edema, Irregular Heart Rhythm, Pain Radiating to Arm/Neck/Jaw, Leg Edema, Leg Ulcers, Lightheadedness, Orthopnea, Palpitations, Paroxysmal Nocturnal Dyspnea, Pedal Edema, Radiating Pain, Rapid Heart Rate, Slow Heart Rate, Syncope, Other - Respiratory Respiratory: As Per HPI, Cough, Dyspnea - Gastrointestinal Gastrointestinal: absent: As Per HPI, Abdominal Pain, Belching, Bloating, Change in Bowel Habits, Change in Stool Character, Coffee Ground Emesis, Constipation, Cramping, Diarrhea, Dyspepsia, Dysphagia, Early Satiety, Excessive Flatus, Fecal Incontinence, Heartburn, Hematemesis, Hematochezia, Loose Stools, Melena, Nausea, Odynophagia, Temesmus, Vomiting, Other - Genitourinary Genitourinary: absent: As Per HPI, Change in Urinary Stream, Difficulty Urinating, Dysuria, Flank Pain, Hematuria, Pyuria, Nocturia, Urinary Incontinence, Urinary Frequency, Urinary Hesitance, Urinary Urgency, Voiding Freq/Small Amts, Freq UTI, Hx Renal/Bladder Calculi, Hx /Renal Surgery, Bladder Distension, Other - Musculoskeletal Musculoskeletal: As Per HPI - Integumentary Integumentary: absent: As Per HPI, Acne, Alopecia, Bleeding Lesions, Change in Hair, Change in Nails, Change in Pigmentation, Changing Lesions, Dry Skin, Erythema, Furuncle, Hirsutism, Lesions, New Lesions, Non-Healing Lesions, Photosensitivity, Pruritus, Rash, Skin Pain, Skin Ulcer, Sores, Striae, Swelling, Unusual Bruising, Wounds, Jaundice, Other - Neurological Neurological: As Per HPI - Psychiatric Psychiatric: absent: As Per HPI, Abnormal Sleep Pattern, Anhedonia, Anxiety, Auditory Hallucinations, Behavioral Changes, Change in Appetite, Change in Libido, Confusion, Depression, Difficulty Concentrating, Hallucinations, Homicidal Ideation, Hopelessness, Irritability, Memory Loss, Mood Swings, Panic Attacks, Paranoia, Suicidal Ideation, Visual Hallucinations, Tactile Hallucinations, Other - Endocrine Endocrine: absent: As Per HPI, Change in Body Appearance, Change in Libido, Cold Intolorance, Deepening of Voice, Excessive Sweating, Fatigue, Flushing, Heat Intolorance, Increase in Ring/Shoe/Hat Size, Palpitations, Polydipsia, Polyphagia, Polyuria, Other - Hematologic/Lymphatic Hematologic: absent: As Per HPI, Easy Bleeding, Easy Bruising, Lymphadenopathy, Other Past Patient History - Infectious Disease Hx of Infectious Diseases: None - Past Medical History & Family History Past Medical History?: Yes - Past Social History Smoking Status: Never Smoked Chewing Tobacco Use: No Cigar Use: No Alcohol: None Drugs: Denies Home Situation {Lives}: With Family - CARDIAC Hx Hypercholesterolemia: Yes Hx Hypertension: Yes - PULMONARY Hx Bronchitis: Yes - NEUROLOGICAL Hx Seizures: No - HEENT Hx Blind: No Hx Difficulty Chewing: No Hx Glaucoma: No Hx Macular Degeneration: No - RENAL Hx Chronic Kidney Disease: No - ENDOCRINE/METABOLIC Hx Diabetes Mellitus Type 2: Yes - HEMATOLOGICAL/ONCOLOGICAL Hx Blood Disorders: No Hx Human Immunodeficiency Virus (HIV): No - INTEGUMENTARY Hx Dermatological Problems: No - MUSCULOSKELETAL/RHEUMATOLOGICAL Hx Arthritis: Yes (OSTEO) - GASTROINTESTINAL Hx Gastrointestinal Disorders: No Other/Comment: Rt. abdominal hernia - GENITOURINARY/GYNECOLOGICAL Hx Sexually Transmitted Disorders: No - PSYCHIATRIC Hx Substance Use: No - SURGICAL HISTORY Hx Cholecystectomy: Yes - ANESTHESIA Hx Anesthesia: Yes Hx Anesthesia Reactions: No Meds Allergies/Adverse Reactions: Allergies Allergy/AdvReac Type Severity Reaction Status Date / Time No Known Allergies Allergy Verified 08/31/18 16:01 - Medications Medications: Current Medications Acetaminophen (Tylenol 325mg Tab) 650 mg PO Q4 PRN PRN Reason: Fever >100.4 F Acetaminophen (Tylenol 325mg Tab) 650 mg PO Q4 PRN PRN Reason: Pain, Mild (1-3) Amlodipine Besylate (Norvasc) 10 mg PO DAILY [facility] Last Admin: 10/19/18 08:51 Dose: 10 mg Aspirin (Ecotrin) 81 mg PO DAILY [facility] Last Admin: 10/19/18 08:50 Dose: 81 mg Atorvastatin Calcium (Lipitor) 10 mg PO HS [facility] Last Admin: 10/19/18 00:06 Dose: 10 mg Cyanocobalamin (Vitamin B12 1000 Mcg Tab) 1,000 mcg PO DAILY [facility] Last Admin: 10/19/18 08:52 Dose: 1,000 mcg Ezetimibe (Zetia) 10 mg PO HS [facility] Last Admin: 10/19/18 00:07 Dose: 10 mg Enoxaparin Sodium (Lovenox) 40 mg SC DAILY [facility]; Protocol Last Admin: 10/19/18 08:51 Dose: 40 mg Ergocalciferol (Drisdol 50,000 Intl Units Cap) 1 cap PO MO [facility] Glipizide (Glucotrol Xl) 10 mg PO BID [facility] Last Admin: 10/19/18 08:50 Dose: 10 mg Home Med (Amlodipine Besylate/Benazepril [Lotrel 10-40 Mg Capsule]) 1 tab PO DAILY [facility] Ceftriaxone Sodium 2 gm/ (Sodium Chloride) 100 mls @ 100 mls/hr IVPB DAILY [facility]; Protocol Last Admin: 10/19/18 08:43 Dose: 100 mls/hr Vancomycin HCl 1 gm/ Sodium (Chloride) 250 mls @ 166.667 mls/hr IVPB DAILY [facility]; Protocol Last Admin: 10/19/18 11:48 Dose: 166.667 mls/hr Sodium Chloride (Sodium Chloride 0.9%) 1,000 mls @ 150 mls/hr IV .Q6H40M [facility] Stop: 10/19/18 21:43 Last Admin: 10/19/18 07:40 Dose: 150 mls/hr Insulin Human Lispro (Humalog) 0 units SC ACHS [facility]; Protocol Last Admin: 10/19/18 11:48 Dose: 2 units Ketorolac Tromethamine (Toradol) 30 mg IVP Q6 PRN PRN Reason: Pain, severe (8-10) Ketorolac Tromethamine (Toradol) 15 mg IVP Q6 PRN PRN Reason: Pain, moderate (4-7) Pantoprazole Sodium (Protonix Inj) 40 mg IVP DAILY [facility] Last Admin: 10/19/18 08:51 Dose: 40 mg Pregabalin (Lyrica) 150 mg PO Q12 [facility] Last Admin: 10/19/18 08:57 Dose: 150 mg Sitagliptin Phosphate (Januvia) 50 mg PO DAILY [facility] Last Admin: 10/19/18 08:51 Dose: 50 mg Physical Exam - Constitutional Appears: Confused, Cachectic, Chronically Ill - Head Exam Head Exam: ATRAUMATIC, NORMAL INSPECTION, NORMOCEPHALIC - Eye Exam Eye Exam: EOMI, PERRL. absent: Scleral icterus Pupil Exam: NORMAL ACCOMODATION - ENT Exam ENT Exam: Mucous Membranes Dry, Normal External Ear Exam, Normal Oropharynx - Neck Exam Neck exam: Negative for: Lymphadenopathy, Thyromegaly - Respiratory Exam Respiratory Exam: Decreased Breath Sounds, Prolonged Expiratory Phase, Rales, Rhonchi - Cardiovascular Exam Cardiovascular Exam: REGULAR RHYTHM, +S1, +S2 - GI/Abdominal Exam GI & Abdominal Exam: Diminished Bowel Sounds, Distended, Soft. absent: Org anomegaly, Pulsatile Mass, Rebound, Rigid, Tenderness - Rectal Exam Rectal Exam: Deferred - Exam Exam: NORMAL INSPECTION - Extremities Exam Extremities exam: Positive for: joint swelling, pedal edema, tenderness, pedal pulses present. Negative for: calf tenderness, full ROM, normal capillary refill, normal inspection - Back Exam Back exam: absent: CVA tenderness (L), CVA tenderness (R), paraspinal tenderness - Neurological Exam Neurological exam: Alert, Altered, CN II-XII Intact, Oriented x3 - Psychiatric Exam Psychiatric exam: Depressed - Skin Skin Exam: Dry, Intact Results - Vital Signs Recent Vital Signs: Last Vital Signs Temp 98.8 F 10/19/18 12:00 Pulse 85 10/19/18 12:00 Resp 20 10/19/18 12:00 BP 146/72 10/19/18 10:00 Pulse Ox 97 10/19/18 12:00 - Labs Result Diagrams: 10/19/18 05:25 10/19/18 05:25 Labs: Laboratory Results - last 24 hr 10/18/18 10/18/18 10/18/18 16:27 17:15 17:15 WBC 17.3 H RBC 4.63 Hgb 14.4 Hct 43.6 MCV 94.3 H MCH 31.1 H MCHC 32.9 L RDW 13.3 Plt Count 302 MPV 8.4 Neut % (Auto) 83.9 H Lymph % (Auto) 3.8 L Summers % (Auto) 12.1 H Eos % (Auto) 0.0 Baso % (Auto) 0.2 Neut # (Auto) 14.5 H Lymph # (Auto) 0.7 L Summers # (Auto) 2.1 H Eos # (Auto) 0.0 Baso # (Auto) 0.0 Neutrophils % (Manual) 82 H Band Neutrophils % 2 Lymphocytes % (Manual) 5 L Monocytes % (Manual) 11 H Hypersegmented Polys Present Toxic Granulation Present Platelet Estimate Normal ESR 88 H pO2 VBG pH VBG pCO2 VBG HCO3 VBG Total CO2 VBG O2 Sat (Calc) VBG Base Excess VBG Potassium Glucose Lactate FiO2 Sodium 138 Potassium 5.6 H Chloride 102 Carbon Dioxide 19 L Anion Gap 23 H BUN 32 H Creatinine 1.7 H Est GFR ( Amer) 48 Est GFR (Non-Af Amer) 40 POC Glucose (mg/dL) 254 H Random Glucose 267 H Hemoglobin A1c Lactic Acid Calcium 9.7 Total Bilirubin 1.5 H AST 31 ALT 18 L Alkaline Phosphatase 106 Ammonia Troponin I < 0.0120 Total Protein 7.6 Albumin 4.1 Globulin 3.5 Albumin/Globulin Ratio 1.2 Venous Blood Potassium Urine Color Urine Clarity Urine pH Ur Specific [place] Urine Protein Urine Glucose (UA) Urine Ketones Urine Blood Urine Nitrate Urine Bilirubin Urine Urobilinogen Ur Leukocyte Esterase Urine RBC (Auto) Urine Microscopic WBC Ur Squamous Epith Cells Urine Bacteria Hyaline Casts Granular Casts (Auto) Influenza Typ A,B (EIA) 10/18/18 10/18/18 10/18/18 17:15 18:33 18:33 WBC RBC Hgb Hct MCV MCH MCHC RDW Plt Count MPV Neut % (Auto) Lymph % (Auto) Summers % (Auto) Eos % (Auto) Baso % (Auto) Neut # (Auto) Lymph # (Auto) Summers # (Auto) Eos # (Auto) Baso # (Auto) Neutrophils % (Manual) Band Neutrophils % Lymphocytes % (Manual) Monocytes % (Manual) Hypersegmented Polys Toxic Granulation Platelet Estimate ESR pO2 25 L VBG pH 7.27 L VBG pCO2 33 L VBG HCO3 15.0 VBG Total CO2 16.2 L VBG O2 Sat (Calc) 43.4 VBG Base Excess -10.6 L VBG Potassium 4.7 Glucose 275 H Lactate 2.2 H FiO2 21.0 Sodium 136.0 Potassium Chloride 107.0 Carbon Dioxide Anion Gap BUN Creatinine Est GFR ( Amer) Est GFR (Non-Af Amer) POC Glucose (mg/dL) Random Glucose Hemoglobin A1c Lactic Acid Calcium Total Bilirubin AST ALT Alkaline Phosphatase Ammonia Troponin I Total Protein Albumin Globulin Albumin/Globulin Ratio Venous Blood Potassium 4.7 Urine Color Yellow Urine Clarity Clear Urine pH 5.0 Ur Specific [place] 1.014 Urine Protein 100 Urine Glucose (UA) 50 Urine Ketones 20 Urine Blood Negative Urine Nitrate Negative Urine Bilirubin Negative Urine Urobilinogen 0.2-1.0 Ur Leukocyte Esterase Neg Urine RBC (Auto) 3 Urine Microscopic WBC < 1 Ur Squamous Epith Cells 1 Urine Bacteria Rare Hyaline Casts Granular Casts (Auto) Influenza Typ A,B (EIA) Negative for flu a/b 10/18/18 10/18/18 10/18/18 19:39 21:15 21:17 WBC RBC Hgb Hct MCV MCH MCHC RDW Plt Count MPV Neut % (Auto) Lymph % (Auto) Summers % (Auto) Eos % (Auto) Baso % (Auto) Neut # (Auto) Lymph # (Auto) Summers # (Auto) Eos # (Auto) Baso # (Auto) Neutrophils % (Manual) Band Neutrophils % Lymphocytes % (Manual) Monocytes % (Manual) Hypersegmented Polys Toxic Granulation Platelet Estimate ESR pO2 VBG pH VBG pCO2 VBG HCO3 VBG Total CO2 VBG O2 Sat (Calc) VBG Base Excess VBG Potassium Glucose Lactate FiO2 Sodium Potassium Chloride Carbon Dioxide Anion Gap BUN Creatinine Est GFR ( Amer) Est GFR (Non-Af Amer) POC Glucose (mg/dL) 283 H Random Glucose Hemoglobin A1c Lactic Acid Calcium Total Bilirubin AST ALT Alkaline Phosphatase Ammonia 9 L Troponin I Total Protein Albumin Globulin Albumin/Globulin Ratio Venous Blood Potassium Urine Color Yellow Urine Clarity Clear Urine pH 5.0 Ur Specific [place] 1.014 Urine Protein 100 Urine Glucose (UA) 50 Urine Ketones 20 Urine Blood Negative Urine Nitrate Negative Urine Bilirubin Negative Urine Urobilinogen 0.2-1.0 Ur Leukocyte Esterase Neg Urine RBC (Auto) 1 Urine Microscopic WBC < 1 Ur Squamous Epith Cells 1 Urine Bacteria Hyaline Casts 0-2 Granular Casts (Auto) 1 Influenza Typ A,B (EIA) 10/18/18 10/19/18 10/19/18 22:55 01:33 04:00 WBC RBC Hgb Hct MCV MCH MCHC RDW Plt Count MPV Neut % (Auto) Lymph % (Auto) Summers % (Auto) Eos % (Auto) Baso % (Auto) Neut # (Auto) Lymph # (Auto) Summers # (Auto) Eos # (Auto) Baso # (Auto) Neutrophils % (Manual) Band Neutrophils % Lymphocytes % (Manual) Monocytes % (Manual) Hypersegmented Polys Toxic Granulation Platelet Estimate ESR pO2 37 VBG pH 7.36 VBG pCO2 36 L VBG HCO3 20.7 VBG Total CO2 21.4 L VBG O2 Sat (Calc) 73.2 H VBG Base Excess -4.5 L VBG Potassium 4.3 Glucose 144 H Lactate 2.0 FiO2 21.0 Sodium 137.0 Potassium Chloride 110.0 H Carbon Dioxide Anion Gap BUN Creatinine Est GFR ( Amer) Est GFR (Non-Af Amer) POC Glucose (mg/dL) 250 H 271 H Random Glucose Hemoglobin A1c Lactic Acid Calcium Total Bilirubin AST ALT Alkaline Phosphatase Ammonia Troponin I Total Protein Albumin Globulin Albumin/Globulin Ratio Venous Blood Potassium 4.3 Urine Color Urine Clarity Urine pH Ur Specific [place] Urine Protein Urine Glucose (UA) Urine Ketones Urine Blood Urine Nitrate Urine Bilirubin Urine Urobilinogen Ur Leukocyte Esterase Urine RBC (Auto) Urine Microscopic WBC Ur Squamous Epith Cells Urine Bacteria Hyaline Casts Granular Casts (Auto) Influenza Typ A,B (EIA) 10/19/18 10/19/18 10/19/18 05:25 05:25 05:25 WBC 12.2 H RBC 4.02 L Hgb 12.5 Hct 37.8 MCV 93.9 MCH 31.1 H MCHC 33.1 RDW 13.1 Plt Count 252 MPV 8.6 Neut % (Auto) 72.8 Lymph % (Auto) 8.0 L Summers % (Auto) 18.4 H Eos % (Auto) 0.0 Baso % (Auto) 0.8 Neut # (Auto) 8.9 H Lymph # (Auto) 1.0 Summers # (Auto) 2.2 H Eos # (Auto) 0.0 Baso # (Auto) 0.1 Neutrophils % (Manual) Band Neutrophils % Lymphocytes % (Manual) Monocytes % (Manual) Hypersegmented Polys Toxic Granulation Platelet Estimate ESR pO2 VBG pH VBG pCO2 VBG HCO3 VBG Total CO2 VBG O2 Sat (Calc) VBG Base Excess VBG Potassium Glucose Lactate FiO2 Sodium 141 Potassium 4.2 Chloride 109 H Carbon Dioxide 20 L Anion Gap 16 BUN 31 H Creatinine 1.6 H Est GFR ( Amer) 52 Est GFR (Non-Af Amer) 43 POC Glucose (mg/dL) Random Glucose 156 H Hemoglobin A1c 6.5 Lactic Acid Calcium 9.2 Total Bilirubin AST ALT Alkaline Phosphatase Ammonia Troponin I Total Protein Albumin Globulin Albumin/Globulin Ratio Venous Blood Potassium Urine Color Urine Clarity Urine pH Ur Specific [place] Urine Protein Urine Glucose (UA) Urine Ketones Urine Blood Urine Nitrate Urine Bilirubin Urine Urobilinogen Ur Leukocyte Esterase Urine RBC (Auto) Urine Microscopic WBC Ur Squamous Epith Cells Urine Bacteria Hyaline Casts Granular Casts (Auto) Influenza Typ A,B (EIA) 10/19/18 10/19/18 10/19/18 06:28 08:37 08:37 WBC RBC Hgb Hct MCV MCH MCHC RDW Plt Count MPV Neut % (Auto) Lymph % (Auto) [place] % (Auto) Eos % (Auto) Baso % (Auto) Neut # (Auto) Lymph # (Auto) [place] # (Auto) Eos # (Auto) Baso # (Auto) Neutrophils % (Manual) Band Neutrophils % Lymphocytes % (Manual) Monocytes % (Manual) Hypersegmented Polys Toxic Granulation Platelet Estimate ESR 94 H pO2 VBG pH VBG pCO2 VBG HCO3 VBG Total CO2 VBG O2 Sat (Calc) VBG Base Excess VBG Potassium Glucose Lactate FiO2 Sodium Potassium Chloride Carbon Dioxide Anion Gap BUN Creatinine Est GFR ( Amer) Est GFR (Non-Af Amer) POC Glucose (mg/dL) 112 H Random Glucose Hemoglobin A1c Lactic Acid 1.3 Calcium Total Bilirubin AST ALT Alkaline Phosphatase Ammonia Troponin I Total Protein Albumin Globulin Albumin/Globulin Ratio Venous Blood Potassium Urine Color Urine Clarity Urine pH Ur Specific [place] Urine Protein Urine Glucose (UA) Urine Ketones Urine Blood Urine Nitrate Urine Bilirubin Urine Urobilinogen Ur Leukocyte Esterase Urine RBC (Auto) Urine Microscopic WBC Ur Squamous Epith Cells Urine Bacteria Hyaline Casts Granular Casts (Auto) Influenza Typ A,B (EIA) 10/19/18 11:27 WBC RBC Hgb Hct MCV MCH MCHC RDW Plt Count MPV Neut % (Auto) Lymph % (Auto) Summers % (Auto) Eos % (Auto) Baso % (Auto) Neut # (Auto) Lymph # (Auto) Summers # (Auto) Eos # (Auto) Baso # (Auto) Neutrophils % (Manual) Band Neutrophils % Lymphocytes % (Manual) Monocytes % (Manual) Hypersegmented Polys Toxic Granulation Platelet Estimate ESR pO2 VBG pH VBG pCO2 VBG HCO3 VBG Total CO2 VBG O2 Sat (Calc) VBG Base Excess VBG Potassium Glucose Lactate FiO2 Sodium Potassium Chloride Carbon Dioxide Anion Gap BUN Creatinine Est GFR ( Amer) Est GFR (Non-Af Amer) POC Glucose (mg/dL) 235 H Random Glucose Hemoglobin A1c Lactic Acid Calcium Total Bilirubin AST ALT Alkaline Phosphatase Ammonia Troponin I Total Protein Albumin Globulin Albumin/Globulin Ratio Venous Blood Potassium Urine Color Urine Clarity Urine pH Ur Specific [place] Urine Protein Urine Glucose (UA) Urine Ketones Urine Blood Urine Nitrate Urine Bilirubin Urine Urobilinogen Ur Leukocyte Esterase Urine RBC (Auto) Urine Microscopic WBC Ur Squamous Epith Cells Urine Bacteria Hyaline Casts Granular Casts (Auto) Influenza Typ A,B (EIA) Assessment & Plan (1) Delirium Status: Acute (2) Diabetes 1.5, managed as type 2 Status: Acute (3) Effusion, left knee Status: Acute (4) Effusion, right knee Status: Acute (5) Encephalopathy acute Status: Acute (6) Hernia of abdominal wall Status: Acute (7) Neck pain Status: Acute - Assessment and Plan (Free Text) Assessment: 73 years old male with hx of DM II, HTN and Rheumatoid Arthritis was brought to the ED with 2 days of generalized weakness, not eating,body aches, somnolence, Bilateral knee and neck pain. . In the ED he was found to have a temperature of 101.8F. ID consult requested for possible meningitis Patient more awake today denies headache c/o pain in knees- both knees swollen and tender Cont rx for sepsis- source unclear arthrocentess done doubt meningitis cont empiric IV antibiotics
[2018-10-19 14:30] LABS: URIC ACID 6.2 mg/Dl (3.5-8.5)
--- NOTE | 2018-10-19 15:29 | CP.PCM.CON ---
History of Present Illness - History of Present Illness History of Present Illness: Orthopedic consultation Dr. Poe 73M complains of L>>R knee pain x approx 1 week. The pain is so bad now that the patient is unable to ambulate. His said she had to call EMS because he could not even stand due to the knee pain. He is also complaining of neck pain. He denies any recent falls. He did have a slip and fall at the beginning of August (08/31/19) and came to the ER for a laceration to his forehead, but no fracture at that time. He denies any knee pain this severe. He has history of RA with knee involvement and has had series of hyaluronic acid injections in his knees years ago, but no steroid injections. He denies any history of gout or swelling or pain in great toe. also states patient has been sleeping a lot and had a lot of aches. No cuts or abrasions to knee recently. No recent travel. No pain in other extremities. Denies numbnes/tingling. Denies change in bowel/bladder. Patient with fever of 101.8 upon presentation to ER. Admitted for sepsis. PMH: HTN, DM, RA, HLD (says he takes medication for RA but doesn't remember the name) PSH: hernia repair, cholecystectomy Review of Systems - Review of Systems All systems: reviewed and no additional remarkable complaints except (increased sleeping) - Constitutional Constitutional: Fever - Cardiovascular Cardiovascular: As Per HPI - Respiratory Respiratory: As Per HPI - Gastrointestinal Additional comments: denies nausea/vomiting - Genitourinary Genitourinary: As Per HPI - Musculoskeletal Musculoskeletal: As Per HPI - Integumentary Integumentary: As Per HPI - Neurological Neurological: As Per HPI - Hematologic/Lymphatic Hematologic: absent: As Per HPI, Easy Bleeding, Easy Bruising, Lymphadenopathy, Other Past Patient History - Infectious Disease Hx of Infectious Diseases: None - Past Medical History & Family History Past Medical History?: Yes Past Family History: Reviewed and not pertinent - Past Social History Smoking Status: Never Smoked Chewing Tobacco Use: No Cigar Use: No Alcohol: None Drugs: Denies Home Situation {Lives}: With Family - CARDIAC Hx Hypercholesterolemia: Yes Hx Hypertension: Yes - PULMONARY Hx Bronchitis: Yes - NEUROLOGICAL Hx Seizures: No - HEENT Hx Blind: No Hx Difficulty Chewing: No Hx Glaucoma: No Hx Macular Degeneration: No - RENAL Hx Chronic Kidney Disease: No - ENDOCRINE/METABOLIC Hx Diabetes Mellitus Type 2: Yes - HEMATOLOGICAL/ONCOLOGICAL Hx Blood Disorders: No Hx Human Immunodeficiency Virus (HIV): No - INTEGUMENTARY Hx Dermatological Problems: No - MUSCULOSKELETAL/RHEUMATOLOGICAL Hx Arthritis: Yes (OSTEO) - GASTROINTESTINAL Hx Gastrointestinal Disorders: No Other/Comment: Rt. abdominal hernia - GENITOURINARY/GYNECOLOGICAL Hx Sexually Transmitted Disorders: No - PSYCHIATRIC Hx Substance Use: No - SURGICAL HISTORY Hx Cholecystectomy: Yes - ANESTHESIA Hx Anesthesia: Yes Hx Anesthesia Reactions: No Meds Allergies/Adverse Reactions: Allergies Allergy/AdvReac Type Severity Reaction Status Date / Time No Known Allergies Allergy Verified 08/31/18 16:01 - Medications Medications: Current Medications Acetaminophen (Tylenol 325mg Tab) 650 mg PO Q4 PRN PRN Reason: Fever >100.4 F Acetaminophen (Tylenol 325mg Tab) 650 mg PO Q4 PRN PRN Reason: Pain, Mild (1-3) Amlodipine Besylate (Norvasc) 10 mg PO DAILY [facility] Last Admin: 10/19/18 08:51 Dose: 10 mg Aspirin (Ecotrin) 81 mg PO DAILY [facility] Last Admin: 10/19/18 08:50 Dose: 81 mg Atorvastatin Calcium (Lipitor) 10 mg PO HS [facility] Last Admin: 10/19/18 00:06 Dose: 10 mg Cyanocobalamin (Vitamin B12 1000 Mcg Tab) 1,000 mcg PO DAILY [facility] Last Admin: 10/19/18 08:52 Dose: 1,000 mcg Ezetimibe (Zetia) 10 mg PO HS [facility] Last Admin: 10/19/18 00:07 Dose: 10 mg Enoxaparin Sodium (Lovenox) 40 mg SC DAILY [facility]; Protocol Last Admin: 10/19/18 08:51 Dose: 40 mg Ergocalciferol (Drisdol 50,000 Intl Units Cap) 1 cap PO MO [facility] Glipizide (Glucotrol Xl) 10 mg PO BID [facility] Last Admin: 10/19/18 08:50 Dose: 10 mg Home Med (Amlodipine Besylate/Benazepril [Lotrel 10-40 Mg Capsule]) 1 tab PO DAILY [facility] Ceftriaxone Sodium 2 gm/ (Sodium Chloride) 100 mls @ 100 mls/hr IVPB DAILY [facility]; Protocol Last Admin: 10/19/18 08:43 Dose: 100 mls/hr Vancomycin HCl 1 gm/ Sodium (Chloride) 250 mls @ 166.667 mls/hr IVPB DAILY [facility]; Protocol Last Admin: 10/19/18 11:48 Dose: 166.667 mls/hr Sodium Chloride (Sodium Chloride 0.9%) 1,000 mls @ 150 mls/hr IV .Q6H40M [facility] Stop: 10/19/18 21:43 Last Admin: 10/19/18 07:40 Dose: 150 mls/hr Insulin Human Lispro (Humalog) 0 units SC ACHS [facility]; Protocol Last Admin: 10/19/18 11:48 Dose: 2 units Ketorolac Tromethamine (Toradol) 30 mg IVP Q6 PRN PRN Reason: Pain, severe (8-10) Ketorolac Tromethamine (Toradol) 15 mg IVP Q6 PRN PRN Reason: Pain, moderate (4-7) Pantoprazole Sodium (Protonix Inj) 40 mg IVP DAILY [facility] Last Admin: 10/19/18 08:51 Dose: 40 mg Pregabalin (Lyrica) 150 mg PO Q12 [facility] Last Admin: 10/19/18 08:57 Dose: 150 mg Sitagliptin Phosphate (Januvia) 50 mg PO DAILY [facility] Last Admin: 10/19/18 08:51 Dose: 50 mg Physical Exam - Constitutional Appears: Well, No Acute Distress - Head Exam Head Exam: ATRAUMATIC - Neck Exam Neck exam: Positive for: Normal Inspection, Tenderness Additional comments: complains of pain with fflex - Respiratory Exam Respiratory Exam: NORMAL BREATHING PATTERN - Cardiovascular Exam Additional comments: +DP/PT pulses - Expanded Lower Extremities Exam Left Hip exam: full ROM Knee exam: effusion (large effusion L>R, no erythema. Right knee minimally tender, left knee very tender, complains of pain with attempted AROM/PROM, skin intact, no erythema, no laxity to varus/valgus/sarai) Lower Leg Exam: normal inspection Ankle exam: FULL ROM, NORMAL INSPECTION Foot/Toe exam: full ROM, normal inspection Neuro vacular tendon exam: no vascular compromise - Back Exam Back exam: NORMAL INSPECTION - Neurological Exam Neurological exam: Alert Additional comments: slow to answer questions, falls asleep, requires repeating questions - Expanded Neurological Exam Expanded Sensory exam: Upper Extremity Light Touch: Normal Neuro motor strength exam: Left Upper Extremity: 5, Right Upper Extremity: 5 - Psychiatric Exam Psychiatric exam: Normal Affect, Normal Mood - Skin Skin Exam: Dry, Intact, Normal Color, Warm Results - Vital Signs Recent Vital Signs: Last Vital Signs Temp 98.8 F 10/19/18 12:00 Pulse 85 10/19/18 12:00 Resp 20 10/19/18 12:00 BP 146/72 10/19/18 10:00 Pulse Ox 97 10/19/18 12:00 - Labs Result Diagrams: 10/19/18 05:25 10/19/18 05:25 Labs: Laboratory Results - last 24 hr 10/18/18 10/18/18 10/18/18 16:27 17:15 17:15 WBC 17.3 H RBC 4.63 Hgb 14.4 Hct 43.6 MCV 94.3 H MCH 31.1 H MCHC 32.9 L RDW 13.3 Plt Count 302 MPV 8.4 Neut % (Auto) 83.9 H Lymph % (Auto) 3.8 L [place] % (Auto) 12.1 H Eos % (Auto) 0.0 Baso % (Auto) 0.2 Neut # (Auto) 14.5 H Lymph # (Auto) 0.7 L [place] # (Auto) 2.1 H Eos # (Auto) 0.0 Baso # (Auto) 0.0 Neutrophils % (Manual) 82 H Band Neutrophils % 2 Lymphocytes % (Manual) 5 L Monocytes % (Manual) 11 H Hypersegmented Polys Present Toxic Granulation Present Platelet Estimate Normal ESR 88 H pO2 VBG pH VBG pCO2 VBG HCO3 VBG Total CO2 VBG O2 Sat (Calc) VBG Base Excess VBG Potassium Glucose Lactate FiO2 Sodium 138 Potassium 5.6 H Chloride 102 Carbon Dioxide 19 L Anion Gap 23 H BUN 32 H Creatinine 1.7 H Est GFR ( Amer) 48 Est GFR (Non-Af Amer) 40 POC Glucose (mg/dL) 254 H Random Glucose 267 H Hemoglobin A1c Lactic Acid Uric Acid Calcium 9.7 Total Bilirubin 1.5 H AST 31 ALT 18 L Alkaline Phosphatase 106 Ammonia Troponin I < 0.0120 Total Protein 7.6 Albumin 4.1 Globulin 3.5 Albumin/Globulin Ratio 1.2 Vitamin B12 Venous Blood Potassium Urine Color Urine Clarity Urine pH Ur Specific [place] Urine Protein Urine Glucose (UA) Urine Ketones Urine Blood Urine Nitrate Urine Bilirubin Urine Urobilinogen Ur Leukocyte Esterase Urine RBC (Auto) Urine Microscopic WBC Ur Squamous Epith Cells Urine Bacteria Hyaline Casts Granular Casts (Auto) HIV-1 Ab Rapid Screen Influenza Typ A,B (EIA) 10/18/18 10/18/18 10/18/18 17:15 18:33 18:33 WBC RBC Hgb Hct MCV MCH MCHC RDW Plt Count MPV Neut % (Auto) Lymph % (Auto) [place] % (Auto) Eos % (Auto) Baso % (Auto) Neut # (Auto) Lymph # (Auto) [place] # (Auto) Eos # (Auto) Baso # (Auto) Neutrophils % (Manual) Band Neutrophils % Lymphocytes % (Manual) Monocytes % (Manual) Hypersegmented Polys Toxic Granulation Platelet Estimate ESR pO2 25 L VBG pH 7.27 L VBG pCO2 33 L VBG HCO3 15.0 VBG Total CO2 16.2 L VBG O2 Sat (Calc) 43.4 VBG Base Excess -10.6 L VBG Potassium 4.7 Glucose 275 H Lactate 2.2 H FiO2 21.0 Sodium 136.0 Potassium Chloride 107.0 Carbon Dioxide Anion Gap BUN Creatinine Est GFR ( Amer) Est GFR (Non-Af Amer) POC Glucose (mg/dL) Random Glucose Hemoglobin A1c Lactic Acid Uric Acid Calcium Total Bilirubin AST ALT Alkaline Phosphatase Ammonia Troponin I Total Protein Albumin Globulin Albumin/Globulin Ratio Vitamin B12 Venous Blood Potassium 4.7 Urine Color Yellow Urine Clarity Clear Urine pH 5.0 Ur Specific [place] 1.014 Urine Protein 100 Urine Glucose (UA) 50 Urine Ketones 20 Urine Blood Negative Urine Nitrate Negative Urine Bilirubin Negative Urine Urobilinogen 0.2-1.0 Ur Leukocyte Esterase Neg Urine RBC (Auto) 3 Urine Microscopic WBC < 1 Ur Squamous Epith Cells 1 Urine Bacteria Rare Hyaline Casts Granular Casts (Auto) HIV-1 Ab Rapid Screen Influenza Typ A,B (EIA) Negative for flu a/b 10/18/18 10/18/18 10/18/18 19:39 21:15 21:17 WBC RBC Hgb Hct MCV MCH MCHC RDW Plt Count MPV Neut % (Auto) Lymph % (Auto) [place] % (Auto) Eos % (Auto) Baso % (Auto) Neut # (Auto) Lymph # (Auto) [place] # (Auto) Eos # (Auto) Baso # (Auto) Neutrophils % (Manual) Band Neutrophils % Lymphocytes % (Manual) Monocytes % (Manual) Hypersegmented Polys Toxic Granulation Platelet Estimate ESR pO2 VBG pH VBG pCO2 VBG HCO3 VBG Total CO2 VBG O2 Sat (Calc) VBG Base Excess VBG Potassium Glucose Lactate FiO2 Sodium Potassium Chloride Carbon Dioxide Anion Gap BUN Creatinine Est GFR ( Amer) Est GFR (Non-Af Amer) POC Glucose (mg/dL) 283 H Random Glucose Hemoglobin A1c Lactic Acid Uric Acid Calcium Total Bilirubin AST ALT Alkaline Phosphatase Ammonia 9 L Troponin I Total Protein Albumin Globulin Albumin/Globulin Ratio Vitamin B12 Venous Blood Potassium Urine Color Yellow Urine Clarity Clear Urine pH 5.0 Ur Specific [place] 1.014 Urine Protein 100 Urine Glucose (UA) 50 Urine Ketones 20 Urine Blood Negative Urine Nitrate Negative Urine Bilirubin Negative Urine Urobilinogen 0.2-1.0 Ur Leukocyte Esterase Neg Urine RBC (Auto) 1 Urine Microscopic WBC < 1 Ur Squamous Epith Cells 1 Urine Bacteria Hyaline Casts 0-2 Granular Casts (Auto) 1 HIV-1 Ab Rapid Screen Influenza Typ A,B (EIA) 10/18/18 10/19/18 10/19/18 22:55 01:33 04:00 WBC RBC Hgb Hct MCV MCH MCHC RDW Plt Count MPV Neut % (Auto) Lymph % (Auto) [place] % (Auto) Eos % (Auto) Baso % (Auto) Neut # (Auto) Lymph # (Auto) [place] # (Auto) Eos # (Auto) Baso # (Auto) Neutrophils % (Manual) Band Neutrophils % Lymphocytes % (Manual) Monocytes % (Manual) Hypersegmented Polys Toxic Granulation Platelet Estimate ESR pO2 37 VBG pH 7.36 VBG pCO2 36 L VBG HCO3 20.7 VBG Total CO2 21.4 L VBG O2 Sat (Calc) 73.2 H VBG Base Excess -4.5 L VBG Potassium 4.3 Glucose 144 H Lactate 2.0 FiO2 21.0 Sodium 137.0 Potassium Chloride 110.0 H Carbon Dioxide Anion Gap BUN Creatinine Est GFR ( Amer) Est GFR (Non-Af Amer) POC Glucose (mg/dL) 250 H 271 H Random Glucose Hemoglobin A1c Lactic Acid Uric Acid Calcium Total Bilirubin AST ALT Alkaline Phosphatase Ammonia Troponin I Total Protein Albumin Globulin Albumin/Globulin Ratio Vitamin B12 Venous Blood Potassium 4.3 Urine Color Urine Clarity Urine pH Ur Specific [place] Urine Protein Urine Glucose (UA) Urine Ketones Urine Blood Urine Nitrate Urine Bilirubin Urine Urobilinogen Ur Leukocyte Esterase Urine RBC (Auto) Urine Microscopic WBC Ur Squamous Epith Cells Urine Bacteria Hyaline Casts Granular Casts (Auto) HIV-1 Ab Rapid Screen Influenza Typ A,B (EIA) 10/19/18 10/19/18 10/19/18 05:25 05:25 05:25 WBC 12.2 H RBC 4.02 L Hgb 12.5 Hct 37.8 MCV 93.9 MCH 31.1 H MCHC 33.1 RDW 13.1 Plt Count 252 MPV 8.6 Neut % (Auto) 72.8 Lymph % (Auto) 8.0 L [place] % (Auto) 18.4 H Eos % (Auto) 0.0 Baso % (Auto) 0.8 Neut # (Auto) 8.9 H Lymph # (Auto) 1.0 [place] # (Auto) 2.2 H Eos # (Auto) 0.0 Baso # (Auto) 0.1 Neutrophils % (Manual) Band Neutrophils % Lymphocytes % (Manual) Monocytes % (Manual) Hypersegmented Polys Toxic Granulation Platelet Estimate ESR pO2 VBG pH VBG pCO2 VBG HCO3 VBG Total CO2 VBG O2 Sat (Calc) VBG Base Excess VBG Potassium Glucose Lactate FiO2 Sodium 141 Potassium 4.2 Chloride 109 H Carbon Dioxide 20 L Anion Gap 16 BUN 31 H Creatinine 1.6 H Est GFR ( Amer) 52 Est GFR (Non-Af Amer) 43 POC Glucose (mg/dL) Random Glucose 156 H Hemoglobin A1c 6.5 Lactic Acid Uric Acid Calcium 9.2 Total Bilirubin AST ALT Alkaline Phosphatase Ammonia Troponin I Total Protein Albumin Globulin Albumin/Globulin Ratio Vitamin B12 Venous Blood Potassium Urine Color Urine Clarity Urine pH Ur Specific [place] Urine Protein Urine Glucose (UA) Urine Ketones Urine Blood Urine Nitrate Urine Bilirubin Urine Urobilinogen Ur Leukocyte Esterase Urine RBC (Auto) Urine Microscopic WBC Ur Squamous Epith Cells Urine Bacteria Hyaline Casts Granular Casts (Auto) HIV-1 Ab Rapid Screen Influenza Typ A,B (EIA) 10/19/18 10/19/18 10/19/18 06:28 08:37 08:37 WBC RBC Hgb Hct MCV MCH MCHC RDW Plt Count MPV Neut % (Auto) Lymph % (Auto) [place] % (Auto) Eos % (Auto) Baso % (Auto) Neut # (Auto) Lymph # (Auto) [place] # (Auto) Eos # (Auto) Baso # (Auto) Neutrophils % (Manual) Band Neutrophils % Lymphocytes % (Manual) Monocytes % (Manual) Hypersegmented Polys Toxic Granulation Platelet Estimate ESR 94 H pO2 VBG pH VBG pCO2 VBG HCO3 VBG Total CO2 VBG O2 Sat (Calc) VBG Base Excess VBG Potassium Glucose Lactate FiO2 Sodium Potassium Chloride Carbon Dioxide Anion Gap BUN Creatinine Est GFR ( Amer) Est GFR (Non-Af Amer) POC Glucose (mg/dL) 112 H Random Glucose Hemoglobin A1c Lactic Acid 1.3 Uric Acid Calcium Total Bilirubin AST ALT Alkaline Phosphatase Ammonia Troponin I Total Protein Albumin Globulin Albumin/Globulin Ratio Vitamin B12 Venous Blood Potassium Urine Color Urine Clarity Urine pH Ur Specific [place] Urine Protein Urine Glucose (UA) Urine Ketones Urine Blood Urine Nitrate Urine Bilirubin Urine Urobilinogen Ur Leukocyte Esterase Urine RBC (Auto) Urine Microscopic WBC Ur Squamous Epith Cells Urine Bacteria Hyaline Casts Granular Casts (Auto) HIV-1 Ab Rapid Screen Influenza Typ A,B (EIA) 10/19/18 10/19/18 10/19/18 11:27 13:45 13:45 WBC RBC Hgb Hct MCV MCH MCHC RDW Plt Count MPV Neut % (Auto) Lymph % (Auto) [place] % (Auto) Eos % (Auto) Baso % (Auto) Neut # (Auto) Lymph # (Auto) [place] # (Auto) Eos # (Auto) Baso # (Auto) Neutrophils % (Manual) Band Neutrophils % Lymphocytes % (Manual) Monocytes % (Manual) Hypersegmented Polys Toxic Granulation Platelet Estimate ESR pO2 VBG pH VBG pCO2 VBG HCO3 VBG Total CO2 VBG O2 Sat (Calc) VBG Base Excess VBG Potassium Glucose Lactate FiO2 Sodium Potassium Chloride Carbon Dioxide Anion Gap BUN Creatinine Est GFR ( Amer) Est GFR (Non-Af Amer) POC Glucose (mg/dL) 235 H Random Glucose Hemoglobin A1c Lactic Acid Uric Acid 6.2 Calcium Total Bilirubin AST ALT Alkaline Phosphatase Ammonia Troponin I Total Protein Albumin Globulin Albumin/Globulin Ratio Vitamin B12 > 1000 H Venous Blood Potassium Urine Color Urine Clarity Urine pH Ur Specific [place] Urine Protein Urine Glucose (UA) Urine Ketones Urine Blood Urine Nitrate Urine Bilirubin Urine Urobilinogen Ur Leukocyte Esterase Urine RBC (Auto) Urine Microscopic WBC Ur Squamous Epith Cells Urine Bacteria Hyaline Casts Granular Casts (Auto) HIV-1 Ab Rapid Screen Non reactive Influenza Typ A,B (EIA) Assessment & Plan (1) Effusion, left knee Assessment and Plan: r/o septic arthritis r/o gout, r/o RA flare,r/o fracture xrays ordered knees and c spine Risks, benefits, alternatives of knee arthrocentesis and aspiration were explained in detail, patient and verbalized understanding and verbally consented to procedure. The patients left knee was prepped in the usual sterile fashion with chloroprep. A 22-gauge 1.5 inch needle was inserted into the knee joint from a superior lateral approach. Through this needle 40 cc of cloudy yellow synovial fluid was aspirated, and sent for stat cell count, crystals, gram stain, culture and sensitivity. The needle was removed, and sterile dressing was applied to knee. Patient tolerated the procedure well. There were no complications. f/u serum uric acid, fluid analysis, cultures VTE proph case d/w Dr. Poe, agrees with above Status: Acute (2) Effusion, right knee Status: Acute (3) Neck pain Assessment and Plan: xrays Status: Acute Procedures Attestation:: I certify that I have explained the specified Operation(s) or Procedure(s), risks, benefits and reasonable alternatives to the Patient and/or other person responsible. The opportunity was given to ask questions and all questions answered - Joint Aspiration/Injection Joint #1 Consent Obtained: Verbal Consent Time Out Performed: Yes Side of Body: Left Joint Aspirated: Knee Ultrasound Guidance Used: No Skin Prep: Chlorprep Needle Size Used: 22 G Fluid Clarity: Turbid (yellow mildly cloudy fluid) Total Fluid Removed (mls): 40 Patient Tolorated Procedure: Well Complications: None
--- NOTE | 2018-10-19 16:02 | CT ---
Date of service: 10/19/2018 PROCEDURE: CT Cervical Spine without contrast HISTORY: Trauma / Fall, r/o Fracture COMPARISON: No prior. TECHNIQUE: Axial computed tomography images were obtained of the cervical spine without the use of intravenous contrast. Coronal and sagittal reformatted images were created and reviewed. Radiation dose: Total exam DLP = 337.49 mGy-cm. This CT exam was performed using one or more of the following dose reduction techniques: Automated exposure control, adjustment of the mA and/or kV according to patient size, and/or use of iterative reconstruction technique. FINDINGS: VERTEBRAE: No fracture. Normal alignment. No destructive bony lesion. DISCS/SPINAL CANAL/NEURAL FORAMINA: Multilevel disc space narrowing with disc osteophyte complex formation, most prominent at C5-6. PARASPINAL SOFT TISSUES: Unremarkable. OTHER FINDINGS: None. IMPRESSION: No acute fracture. Multilevel degenerative changes, worst at C5-6.
--- NOTE | 2018-10-19 16:31 | RAD ---
Date of service: 10/19/2018 PROCEDURE: Cervical Spine Radiographs. HISTORY: Pain. COMPARISON: None available. FINDINGS: BONES: Alignment maintained. No fracture. Dens Intact. DISC SPACES: Multilevel disc space narrowing. SOFT TISSUES: Normal. No prevertebral soft tissue swelling. OTHER FINDINGS: None. IMPRESSION: No acute fracture. Degenerative changes
--- NOTE | 2018-10-19 16:32 | RAD ---
Date of service: 10/19/2018 PROCEDURE: Bilateral Knee Radiographs. HISTORY: bilat knee pain COMPARISON: None. FINDINGS: BONES: Right Knee: No acute fracture. Left Knee: No acute fracture. JOINTS: Right Knee: Tricompartmental narrowing with degenerative spurring. Left knee: Tricompartmental narrowing with degenerative spurring. SOFT TISSUES: Right Knee: Normal. Left Knee: Normal. JOINT EFFUSION: Right Knee: Moderate joint effusion Left Knee: None. OTHER FINDINGS: None. IMPRESSION: Moderate right joint effusion. No definite acute fracture or dislocation. Tricompartmental arthritic changes.
--- NOTE | 2018-10-19 16:34 | CP.PCM.CON ---
History of Present Illness - History of Present Illness History of Present Illness: Neurology consult called by Dr. Sims. Mr Vick is a 73 yr old right handed male, with a pmh of DM, HTN and rheumatoid arthritis who was brought in by his for diffuse body aches, with neck pain and bilateral knee pain. The pain is 9/10 radiating to his arms bilaterally and made worse by exertion. He has had decreased po intake for several days. Patient was admitted and found to be septic and now is awake and alert. He is not complaining of headache, nausea, vomiting, numbness or tingling. Since admission, his fever is now resolved. He is currently being evaluated for septic knee and will most likely need surgical removal of fluid. PMH: Arthritis (OSTEO), Bronchitis, DM II, HTN, HLD; RA PSH: Cholecystectomy; Right inguinal hernia repair SH: Never Smoked, No Alcohol, No illegal drug use, Live with family FH: No known family hx Allergies: NKDA Past Patient History - Infectious Disease Hx of Infectious Diseases: None - Past Medical History & Family History Past Medical History?: Yes Past Family History: Reviewed and not pertinent - Past Social History Smoking Status: Never Smoked Chewing Tobacco Use: No Cigar Use: No Alcohol: None Drugs: Denies Home Situation {Lives}: With Family - CARDIAC Hx Hypercholesterolemia: Yes Hx Hypertension: Yes - PULMONARY Hx Bronchitis: Yes - NEUROLOGICAL Hx Seizures: No - HEENT Hx Blind: No Hx Difficulty Chewing: No Hx Glaucoma: No Hx Macular Degeneration: No - RENAL Hx Chronic Kidney Disease: No - ENDOCRINE/METABOLIC Hx Diabetes Mellitus Type 2: Yes - HEMATOLOGICAL/ONCOLOGICAL Hx Blood Disorders: No Hx Human Immunodeficiency Virus (HIV): No - INTEGUMENTARY Hx Dermatological Problems: No - MUSCULOSKELETAL/RHEUMATOLOGICAL Hx Arthritis: Yes (OSTEO) - GASTROINTESTINAL Hx Gastrointestinal Disorders: No Other/Comment: Rt. abdominal hernia - GENITOURINARY/GYNECOLOGICAL Hx Sexually Transmitted Disorders: No - PSYCHIATRIC Hx Substance Use: No - SURGICAL HISTORY Hx Cholecystectomy: Yes - ANESTHESIA Hx Anesthesia: Yes Hx Anesthesia Reactions: No Meds Allergies/Adverse Reactions: Allergies Allergy/AdvReac Type Severity Reaction Status Date / Time No Known Allergies Allergy Verified 08/31/18 16:01 - Medications Medications: Current Medications Acetaminophen (Tylenol 325mg Tab) 650 mg PO Q4 PRN PRN Reason: Fever >100.4 F Acetaminophen (Tylenol 325mg Tab) 650 mg PO Q4 PRN PRN Reason: Pain, Mild (1-3) Amlodipine Besylate (Norvasc) 10 mg PO DAILY [facility] Last Admin: 10/19/18 08:51 Dose: 10 mg Aspirin (Ecotrin) 81 mg PO DAILY [facility] Last Admin: 10/19/18 08:50 Dose: 81 mg Atorvastatin Calcium (Lipitor) 10 mg PO HS [facility] Last Admin: 10/19/18 00:06 Dose: 10 mg Cyanocobalamin (Vitamin B12 1000 Mcg Tab) 1,000 mcg PO DAILY [facility] Last Admin: 10/19/18 08:52 Dose: 1,000 mcg Ezetimibe (Zetia) 10 mg PO HS [facility] Last Admin: 10/19/18 00:07 Dose: 10 mg Enoxaparin Sodium (Lovenox) 40 mg SC DAILY [facility]; Protocol Last Admin: 10/19/18 08:51 Dose: 40 mg Ergocalciferol (Drisdol 50,000 Intl Units Cap) 1 cap PO MO [facility] Glipizide (Glucotrol Xl) 10 mg PO BID [facility] Last Admin: 10/19/18 08:50 Dose: 10 mg Home Med (Amlodipine Besylate/Benazepril [Lotrel 10-40 Mg Capsule]) 1 tab PO DAILY [facility] Ceftriaxone Sodium 2 gm/ (Sodium Chloride) 100 mls @ 100 mls/hr IVPB DAILY [facility]; Protocol Last Admin: 10/19/18 08:43 Dose: 100 mls/hr Vancomycin HCl 1 gm/ Sodium (Chloride) 250 mls @ 166.667 mls/hr IVPB DAILY [facility]; Protocol Last Admin: 10/19/18 11:48 Dose: 166.667 mls/hr Sodium Chloride (Sodium Chloride 0.9%) 1,000 mls @ 150 mls/hr IV .Q6H40M [facility] Stop: 10/19/18 21:43 Last Admin: 10/19/18 07:40 Dose: 150 mls/hr Insulin Human Lispro (Humalog) 0 units SC ACHS [facility]; Protocol Last Admin: 10/19/18 11:48 Dose: 2 units Ketorolac Tromethamine (Toradol) 30 mg IVP Q6 PRN PRN Reason: Pain, severe (8-10) Ketorolac Tromethamine (Toradol) 15 mg IVP Q6 PRN PRN Reason: Pain, moderate (4-7) Pantoprazole Sodium (Protonix Inj) 40 mg IVP DAILY [facility] Last Admin: 10/19/18 08:51 Dose: 40 mg Pregabalin (Lyrica) 150 mg PO Q12 [facility] Last Admin: 10/19/18 08:57 Dose: 150 mg Sitagliptin Phosphate (Januvia) 50 mg PO DAILY [facility] Last Admin: 10/19/18 08:51 Dose: 50 mg Physical Exam - Constitutional Appears: Well - Head Exam Head Exam: ATRAUMATIC, NORMAL INSPECTION, NORMOCEPHALIC - Eye Exam Eye Exam: EOMI, Normal appearance, PERRL Pupil Exam: NORMAL ACCOMODATION, PERRL - ENT Exam ENT Exam: Mucous Membranes Moist, Normal Exam - Neck Exam Neck exam: Positive for: Normal Inspection - Respiratory Exam Respiratory Exam: Clear to Auscultation Bilateral, NORMAL BREATHING PATTERN - Cardiovascular Exam Cardiovascular Exam: REGULAR RHYTHM - GI/Abdominal Exam GI & Abdominal Exam: Normal Bowel Sounds, Soft. absent: Tenderness - Rectal Exam Rectal Exam: Deferred, NORMAL INSPECTION - Exam Exam: Circumcision, NORMAL INSPECTION External exam: NORMAL EXTERNAL EXAM Speculum exam: NORMAL SPECULUM EXAM Bimanual exam: NORMAL BIMANUAL EXAM - Extremities Exam Extremities exam: Positive for: normal inspection - Back Exam Back exam: NORMAL INSPECTION - Neurological Exam Neurological exam: Alert, CN II-XII Intact, Normal Gait, Oriented x3, Reflexes Normal - Psychiatric Exam Psychiatric exam: Normal Affect, Normal Mood - Skin Skin Exam: Dry, Intact, Normal Color, Warm Results - Vital Signs Recent Vital Signs: Last Vital Signs Temp 98.8 F 10/19/18 12:00 Pulse 85 10/19/18 12:00 Resp 20 10/19/18 12:00 BP 146/72 10/19/18 10:00 Pulse Ox 97 10/19/18 12:00 - Labs Result Diagrams: 10/19/18 05:25 10/19/18 05:25 Labs: Laboratory Results - last 24 hr 10/18/18 10/18/18 10/18/18 16:27 17:15 17:15 WBC 17.3 H RBC 4.63 Hgb 14.4 Hct 43.6 MCV 94.3 H MCH 31.1 H MCHC 32.9 L RDW 13.3 Plt Count 302 MPV 8.4 Neut % (Auto) 83.9 H Lymph % (Auto) 3.8 L [place] % (Auto) 12.1 H Eos % (Auto) 0.0 Baso % (Auto) 0.2 Neut # (Auto) 14.5 H Lymph # (Auto) 0.7 L [place] # (Auto) 2.1 H Eos # (Auto) 0.0 Baso # (Auto) 0.0 Neutrophils % (Manual) 82 H Band Neutrophils % 2 Lymphocytes % (Manual) 5 L Monocytes % (Manual) 11 H Hypersegmented Polys Present Toxic Granulation Present Platelet Estimate Normal ESR 88 H pO2 VBG pH VBG pCO2 VBG HCO3 VBG Total CO2 VBG O2 Sat (Calc) VBG Base Excess VBG Potassium Glucose Lactate FiO2 Sodium 138 Potassium 5.6 H Chloride 102 Carbon Dioxide 19 L Anion Gap 23 H BUN 32 H Creatinine 1.7 H Est GFR ( Amer) 48 Est GFR (Non-Af Amer) 40 POC Glucose (mg/dL) 254 H Random Glucose 267 H Hemoglobin A1c Lactic Acid Uric Acid Calcium 9.7 Total Bilirubin 1.5 H AST 31 ALT 18 L Alkaline Phosphatase 106 Ammonia Troponin I < 0.0120 Total Protein 7.6 Albumin 4.1 Globulin 3.5 Albumin/Globulin Ratio 1.2 Vitamin B12 Venous Blood Potassium Urine Color Urine Clarity Urine pH Ur Specific [place] Urine Protein Urine Glucose (UA) Urine Ketones Urine Blood Urine Nitrate Urine Bilirubin Urine Urobilinogen Ur Leukocyte Esterase Urine RBC (Auto) Urine Microscopic WBC Ur Squamous Epith Cells Urine Bacteria Hyaline Casts Granular Casts (Auto) HIV-1 Ab Rapid Screen Influenza Typ A,B (EIA) 10/18/18 10/18/18 10/18/18 17:15 18:33 18:33 WBC RBC Hgb Hct MCV MCH MCHC RDW Plt Count MPV Neut % (Auto) Lymph % (Auto) [place] % (Auto) Eos % (Auto) Baso % (Auto) Neut # (Auto) Lymph # (Auto) [place] # (Auto) Eos # (Auto) Baso # (Auto) Neutrophils % (Manual) Band Neutrophils % Lymphocytes % (Manual) Monocytes % (Manual) Hypersegmented Polys Toxic Granulation Platelet Estimate ESR pO2 25 L VBG pH 7.27 L VBG pCO2 33 L VBG HCO3 15.0 VBG Total CO2 16.2 L VBG O2 Sat (Calc) 43.4 VBG Base Excess -10.6 L VBG Potassium 4.7 Glucose 275 H Lactate 2.2 H FiO2 21.0 Sodium 136.0 Potassium Chloride 107.0 Carbon Dioxide Anion Gap BUN Creatinine Est GFR ( Amer) Est GFR (Non-Af Amer) POC Glucose (mg/dL) Random Glucose Hemoglobin A1c Lactic Acid Uric Acid Calcium Total Bilirubin AST ALT Alkaline Phosphatase Ammonia Troponin I Total Protein Albumin Globulin Albumin/Globulin Ratio Vitamin B12 Venous Blood Potassium 4.7 Urine Color Yellow Urine Clarity Clear Urine pH 5.0 Ur Specific [place] 1.014 Urine Protein 100 Urine Glucose (UA) 50 Urine Ketones 20 Urine Blood Negative Urine Nitrate Negative Urine Bilirubin Negative Urine Urobilinogen 0.2-1.0 Ur Leukocyte Esterase Neg Urine RBC (Auto) 3 Urine Microscopic WBC < 1 Ur Squamous Epith Cells 1 Urine Bacteria Rare Hyaline Casts Granular Casts (Auto) HIV-1 Ab Rapid Screen Influenza Typ A,B (EIA) Negative for flu a/b 10/18/18 10/18/18 10/18/18 19:39 21:15 21:17 WBC RBC Hgb Hct MCV MCH MCHC RDW Plt Count MPV Neut % (Auto) Lymph % (Auto) [place] % (Auto) Eos % (Auto) Baso % (Auto) Neut # (Auto) Lymph # (Auto) [place] # (Auto) Eos # (Auto) Baso # (Auto) Neutrophils % (Manual) Band Neutrophils % Lymphocytes % (Manual) Monocytes % (Manual) Hypersegmented Polys Toxic Granulation Platelet Estimate ESR pO2 VBG pH VBG pCO2 VBG HCO3 VBG Total CO2 VBG O2 Sat (Calc) VBG Base Excess VBG Potassium Glucose Lactate FiO2 Sodium Potassium Chloride Carbon Dioxide Anion Gap BUN Creatinine Est GFR ( Amer) Est GFR (Non-Af Amer) POC Glucose (mg/dL) 283 H Random Glucose Hemoglobin A1c Lactic Acid Uric Acid Calcium Total Bilirubin AST ALT Alkaline Phosphatase Ammonia 9 L Troponin I Total Protein Albumin Globulin Albumin/Globulin Ratio Vitamin B12 Venous Blood Potassium Urine Color Yellow Urine Clarity Clear Urine pH 5.0 Ur Specific [place] 1.014 Urine Protein 100 Urine Glucose (UA) 50 Urine Ketones 20 Urine Blood Negative Urine Nitrate Negative Urine Bilirubin Negative Urine Urobilinogen 0.2-1.0 Ur Leukocyte Esterase Neg Urine RBC (Auto) 1 Urine Microscopic WBC < 1 Ur Squamous Epith Cells 1 Urine Bacteria Hyaline Casts 0-2 Granular Casts (Auto) 1 HIV-1 Ab Rapid Screen Influenza Typ A,B (EIA) 10/18/18 10/19/18 10/19/18 22:55 01:33 04:00 WBC RBC Hgb Hct MCV MCH MCHC RDW Plt Count MPV Neut % (Auto) Lymph % (Auto) [place] % (Auto) Eos % (Auto) Baso % (Auto) Neut # (Auto) Lymph # (Auto) [place] # (Auto) Eos # (Auto) Baso # (Auto) Neutrophils % (Manual) Band Neutrophils % Lymphocytes % (Manual) Monocytes % (Manual) Hypersegmented Polys Toxic Granulation Platelet Estimate ESR pO2 37 VBG pH 7.36 VBG pCO2 36 L VBG HCO3 20.7 VBG Total CO2 21.4 L VBG O2 Sat (Calc) 73.2 H VBG Base Excess -4.5 L VBG Potassium 4.3 Glucose 144 H Lactate 2.0 FiO2 21.0 Sodium 137.0 Potassium Chloride 110.0 H Carbon Dioxide Anion Gap BUN Creatinine Est GFR ( Amer) Est GFR (Non-Af Amer) POC Glucose (mg/dL) 250 H 271 H Random Glucose Hemoglobin A1c Lactic Acid Uric Acid Calcium Total Bilirubin AST ALT Alkaline Phosphatase Ammonia Troponin I Total Protein Albumin Globulin Albumin/Globulin Ratio Vitamin B12 Venous Blood Potassium 4.3 Urine Color Urine Clarity Urine pH Ur Specific [place] Urine Protein Urine Glucose (UA) Urine Ketones Urine Blood Urine Nitrate Urine Bilirubin Urine Urobilinogen Ur Leukocyte Esterase Urine RBC (Auto) Urine Microscopic WBC Ur Squamous Epith Cells Urine Bacteria Hyaline Casts Granular Casts (Auto) HIV-1 Ab Rapid Screen Influenza Typ A,B (EIA) 10/19/18 10/19/18 10/19/18 05:25 05:25 05:25 WBC 12.2 H RBC 4.02 L Hgb 12.5 Hct 37.8 MCV 93.9 MCH 31.1 H MCHC 33.1 RDW 13.1 Plt Count 252 MPV 8.6 Neut % (Auto) 72.8 Lymph % (Auto) 8.0 L [place] % (Auto) 18.4 H Eos % (Auto) 0.0 Baso % (Auto) 0.8 Neut # (Auto) 8.9 H Lymph # (Auto) 1.0 [place] # (Auto) 2.2 H Eos # (Auto) 0.0 Baso # (Auto) 0.1 Neutrophils % (Manual) Band Neutrophils % Lymphocytes % (Manual) Monocytes % (Manual) Hypersegmented Polys Toxic Granulation Platelet Estimate ESR pO2 VBG pH VBG pCO2 VBG HCO3 VBG Total CO2 VBG O2 Sat (Calc) VBG Base Excess VBG Potassium Glucose Lactate FiO2 Sodium 141 Potassium 4.2 Chloride 109 H Carbon Dioxide 20 L Anion Gap 16 BUN 31 H Creatinine 1.6 H Est GFR ( Amer) 52 Est GFR (Non-Af Amer) 43 POC Glucose (mg/dL) Random Glucose 156 H Hemoglobin A1c 6.5 Lactic Acid Uric Acid Calcium 9.2 Total Bilirubin AST ALT Alkaline Phosphatase Ammonia Troponin I Total Protein Albumin Globulin Albumin/Globulin Ratio Vitamin B12 Venous Blood Potassium Urine Color Urine Clarity Urine pH Ur Specific [place] Urine Protein Urine Glucose (UA) Urine Ketones Urine Blood Urine Nitrate Urine Bilirubin Urine Urobilinogen Ur Leukocyte Esterase Urine RBC (Auto) Urine Microscopic WBC Ur Squamous Epith Cells Urine Bacteria Hyaline Casts Granular Casts (Auto) HIV-1 Ab Rapid Screen Influenza Typ A,B (EIA) 10/19/18 10/19/18 10/19/18 06:28 08:37 08:37 WBC RBC Hgb Hct MCV MCH MCHC RDW Plt Count MPV Neut % (Auto) Lymph % (Auto) [place] % (Auto) Eos % (Auto) Baso % (Auto) Neut # (Auto) Lymph # (Auto) [place] # (Auto) Eos # (Auto) Baso # (Auto) Neutrophils % (Manual) Band Neutrophils % Lymphocytes % (Manual) Monocytes % (Manual) Hypersegmented Polys Toxic Granulation Platelet Estimate ESR 94 H pO2 VBG pH VBG pCO2 VBG HCO3 VBG Total CO2 VBG O2 Sat (Calc) VBG Base Excess VBG Potassium Glucose Lactate FiO2 Sodium Potassium Chloride Carbon Dioxide Anion Gap BUN Creatinine Est GFR ( Amer) Est GFR (Non-Af Amer) POC Glucose (mg/dL) 112 H Random Glucose Hemoglobin A1c Lactic Acid 1.3 Uric Acid Calcium Total Bilirubin AST ALT Alkaline Phosphatase Ammonia Troponin I Total Protein Albumin Globulin Albumin/Globulin Ratio Vitamin B12 Venous Blood Potassium Urine Color Urine Clarity Urine pH Ur Specific [place] Urine Protein Urine Glucose (UA) Urine Ketones Urine Blood Urine Nitrate Urine Bilirubin Urine Urobilinogen Ur Leukocyte Esterase Urine RBC (Auto) Urine Microscopic WBC Ur Squamous Epith Cells Urine Bacteria Hyaline Casts Granular Casts (Auto) HIV-1 Ab Rapid Screen Influenza Typ A,B (EIA) 10/19/18 10/19/18 10/19/18 11:27 13:45 13:45 WBC RBC Hgb Hct MCV MCH MCHC RDW Plt Count MPV Neut % (Auto) Lymph % (Auto) [place] % (Auto) Eos % (Auto) Baso % (Auto) Neut # (Auto) Lymph # (Auto) [place] # (Auto) Eos # (Auto) Baso # (Auto) Neutrophils % (Manual) Band Neutrophils % Lymphocytes % (Manual) Monocytes % (Manual) Hypersegmented Polys Toxic Granulation Platelet Estimate ESR pO2 VBG pH VBG pCO2 VBG HCO3 VBG Total CO2 VBG O2 Sat (Calc) VBG Base Excess VBG Potassium Glucose Lactate FiO2 Sodium Potassium Chloride Carbon Dioxide Anion Gap BUN Creatinine Est GFR ( Amer) Est GFR (Non-Af Amer) POC Glucose (mg/dL) 235 H Random Glucose Hemoglobin A1c Lactic Acid Uric Acid 6.2 Calcium Total Bilirubin AST ALT Alkaline Phosphatase Ammonia Troponin I Total Protein Albumin Globulin Albumin/Globulin Ratio Vitamin B12 > 1000 H Venous Blood Potassium Urine Color Urine Clarity Urine pH Ur Specific [place] Urine Protein Urine Glucose (UA) Urine Ketones Urine Blood Urine Nitrate Urine Bilirubin Urine Urobilinogen Ur Leukocyte Esterase Urine RBC (Auto) Urine Microscopic WBC Ur Squamous Epith Cells Urine Bacteria Hyaline Casts Granular Casts (Auto) HIV-1 Ab Rapid Screen Non reactive Influenza Typ A,B (EIA) Assessment & Plan - Assessment and Plan (Free Text) Assessment: Ct head: Profound atrophy. No hemorrhages, no fractures. A/p: 73 yr old male with multiple medical problems, who is septic and has most likely cervical radiculopathy. He does not have any Kernigs or Brudzinskis sign, and his sepsis is resolving. Plan: 1. MRI Cervical spine without betzaida 2. Continue medical management. Our team will follow Thank you Dr. Rasmussen neurology
[2018-10-19 16:55] LABS: FLUID TYPE SYNOVIAL FLUID
[2018-10-19 18:32] LABS: SF GROSS APPEARANCE CLOUDY (CLEAR); SYNOVIAL FLUID COMMENT YELLOWISH
[2018-10-19 18:42] LABS: SYNOVIAL FLUID MONO/MACROPHAGE 10 % (0-0)
[2018-10-19] MEDS ORDERED: cefTRIAXone 2,000 MG in PED IV SYRINGE 1 SYR IVPB SCH (18:45)
--- NOTE | 2018-10-19 19:16 | CARD ---
APPROVED REPORT Date of service: 10/19/2018 EXAM: Two-dimensional and M-mode echocardiogram with Doppler and color Doppler. Other Information Quality : GoodRhythm : NSR INDICATION Syncope 2D DIMENSIONS IVSd0.98 (0.7-1.1cm)LVDd4.43 (3.9-5.9cm) LVOT Diameter2.11 (1.8-2.4cm)PWd1.10 (0.7-1.1cm) IVSs1.32 (0.8-1.2cm)LVDs3.67 (2.5-4.0cm) FS (%) 17.2 %PWs1.26 (0.8-1.2cm) M-Mode DIMENSIONS Left Atrium (MM)4.34 (2.5-4.0cm)Aortic Root2.84 (2.2-3.7cm) Aortic Cusp Exc.1.59 (1.5-2.0cm) Aortic Valve AoV Peak Fijratul574.1cm/sAoV VTI41.7cmAO Peak GR.19mmHg LVOT Peak Bcadtmsz61.4cm/sLVOT VTI17.92cmAO Mean GR.11mmHg SHRUTHI (VMAX)0.98rk7HHD (VTI)0.78cm2 Mitral Valve MV E Jhsbjeot40.8cm/sMV DECEL [id number] A Qysrhlor55.0cm/s MV TAQ18yrH/A ratio0.7MVA (PHT)3.13cm2 TDI Lateral E' Peak V13.53cm/sMedial E' Peak V13.69cm/sE/Lateral E'4.1 E/Medial E'4.1 LEFT VENTRICLE The left ventricle is normal size. There is normal left ventricular wall thickness. The left ventricular systolic function is low normal. The estimated ejection fraction is 50-55% No regional wall motion abnormalities noted.. Transmitral Doppler flow pattern is Grade I-abnormal relaxation pattern. No left ventricle thrombus noted on this study. There is no ventricular septal defect visualized. There is no left ventricular aneurysm. There is no mass noted in the left ventricle. RIGHT VENTRICLE The right ventricle is normal size. There is normal right ventricular wall thickness. The right ventricular systolic function is normal. ATRIA The left atrium size is normal. The right atrium size is normal. The interatrial septum is intact with no evidence for an atrial septal defect. AORTIC VALVE The aortic valve is normal in structure. Calcified leflets. No aortic regurgitation is present. There is moderate aortic valvular stenosis. Peak aortic velocity is -2.5 m/sec and calculated AV area is 1.47 cm2. Correlate clinically. There is no aortic valvular vegetation. MITRAL VALVE The mitral valve is normal in structure. There is no evidence of mitral valve prolapse. There is no mitral valve stenosis. There is trace mitral valve regurgitation noted. TRICUSPID VALVE The tricuspid valve is normal in structure. There is trace tricuspid valve regurgitation noted. There is no tricuspid valve prolapse or vegetation. There is no tricuspid valve stenosis. PULMONIC VALVE The pulmonary valve is normal in structure. There is no pulmonic valvular regurgitation. There is no pulmonic valvular stenosis. GREAT VESSELS The aortic root is normal in size. The ascending aorta is normal in size. The pulmonary artery is normal. The IVC is normal in size and collapses >50% with inspiration. PERICARDIAL EFFUSION There is no pericardial effusion. There is no pleural effusion. <Conclusion> Technically difficult study. The estimated ejection fraction is 50-55% Transmitral Doppler flow pattern is Grade I-abnormal relaxation pattern. The left atrium size is normal. There is moderate aortic valvular stenosis. Peak aortic velocity is -2.5 m/sec and calculated AV area is 1.47 cm2. Correlate clinically. There is trace mitral valve regurgitation noted. There is trace tricuspid valve regurgitation noted.
[2018-10-19 23:01] LABS: FOLATE 11.8 ng/mL
[2018-10-20 06:13] LABS: BASO # 0.1 K/uL (0.0-0.2); BASO % 0.6 % (0.0-2.0); EOS % 0.2 % (0.0-4.0); HEMOGLOBIN 11.9 g/dL (12.0-18.0); LYMPH % 9.3 % (20.0-40.0); MEAN CELL VOLUME 94.2 fl (80.0-94.0); MEAN CORPUSCULAR HGB CONC 32.8 g/dL (33.0-37.0); MEAN PLATELET VOLUME 8.5 fl (7.2-11.7); MONO # 1.3 K/uL (0.0-0.8); MONO % 11.6 % (0.0-10.0); NEUT # 8.9 K/uL (1.8-7.0); NEUT % 78.3 % (50.0-75.0); RBC 3.85 Mil/uL (4.40-5.90); RED CELL DISTRIBUTION WIDTH 12.9 % (11.5-14.5); WHITE BLOOD COUNT 11.3 K/uL (4.8-10.8)
[2018-10-20 06:53] LABS: ALBUMIN 3.4 g/dL (3.5-5.0); CALCIUM 8.9 mg/dL (8.4-10.2)
[2018-10-20] MEDS: Insulin Lispro (humaLOG) 100 Units/ml Inj SC SCH ×4 (07:16→22:00)
[2018-10-20] MEDS: cefTRIAXone 2 GM in Sodium Chloride 0.9% 100 ML IVPB SCH (08:46)
[2018-10-20] MEDS: Enoxaparin 40 mg Syringe SC SCH (08:46)
[2018-10-20] MEDS: GlipiZIDE 10 mg SR Tab PO SCH ×2 (08:48→17:38)
[2018-10-20] MEDS ORDERED: BENAZEPRIL PO SCH (09:00)
[2018-10-20] MEDS ORDERED: AMLODIPINE BESYLATE PO SCH (09:00)
--- NOTE | 2018-10-20 11:12 | CP.PCM.PN ---
Subjective - Date & Time of Evaluation Date of Evaluation: 10/20/18 Time of Evaluation: 10:30 - Subjective Subjective: S- pt with complaints of pain and restricted ROM C spine; pt not with significant knee pain currently (L was worse than R0 Objective - Vital Signs/Intake and Output Vital Signs (last 24 hours): Temp Pulse Resp BP Pulse Ox 97.5 F L 89 21 140/72 98 10/20/18 08:00 10/20/18 10:00 10/20/18 10:00 10/20/18 10:00 10/20/18 10:00 Intake and Output: 10/20/18 10/20/18 06:59 18:59 Intake Total 2140 900 Output Total 1200 Balance 940 900 - Medications Medications: Current Medications Acetaminophen (Tylenol 325mg Tab) 650 mg PO Q4 PRN PRN Reason: Fever >100.4 F Acetaminophen (Tylenol 325mg Tab) 650 mg PO Q4 PRN PRN Reason: Pain, Mild (1-3) Amlodipine Besylate (Norvasc) 10 mg PO DAILY [facility] Last Admin: 10/20/18 08:46 Dose: 10 mg Aspirin (Ecotrin) 81 mg PO DAILY [facility] Last Admin: 10/20/18 08:43 Dose: 81 mg Atorvastatin Calcium (Lipitor) 10 mg PO HS [facility] Last Admin: 10/19/18 21:48 Dose: 10 mg Cyanocobalamin (Vitamin B12 1000 Mcg Tab) 1,000 mcg PO DAILY [facility] Last Admin: 10/20/18 08:47 Dose: 1,000 mcg Ezetimibe (Zetia) 10 mg PO HS [facility] Last Admin: 10/19/18 21:48 Dose: 10 mg Enoxaparin Sodium (Lovenox) 40 mg SC DAILY [facility]; Protocol Last Admin: 10/20/18 08:46 Dose: 40 mg Ergocalciferol (Drisdol 50,000 Intl Units Cap) 1 cap PO MO [facility] Glipizide (Glucotrol Xl) 10 mg PO BID [facility] Last Admin: 10/20/18 08:48 Dose: 10 mg Vancomycin HCl 1 gm/ Sodium (Chloride) 250 mls @ 166.667 mls/hr IVPB DAILY [facility]; Protocol Last Admin: 10/20/18 10:34 Dose: 166.667 mls/hr Ceftriaxone Sodium 2 gm/ (Sodium Chloride) 100 mls @ 100 mls/hr IVPB DAILY [facility] Last Admin: 10/20/18 08:46 Dose: 100 mls/hr Insulin Human Lispro (Humalog) 0 units SC ACHS [facility]; Protocol Last Admin: 10/20/18 07:16 Dose: Not Given Ketorolac Tromethamine (Toradol) 30 mg IVP Q6 PRN PRN Reason: Pain, severe (8-10) Ketorolac Tromethamine (Toradol) 15 mg IVP Q6 PRN PRN Reason: Pain, moderate (4-7) Lisinopril (Zestril) 40 mg PO DAILY [facility] Last Admin: 10/20/18 08:47 Dose: 40 mg Metformin HCl (Glucophage) 1,000 mg PO BID [facility] Last Admin: 10/20/18 08:45 Dose: 1,000 mg Pantoprazole Sodium (Protonix Inj) 40 mg IVP DAILY [facility] Last Admin: 10/20/18 08:46 Dose: 40 mg Pregabalin (Lyrica) 150 mg PO Q12 [facility] Last Admin: 10/20/18 08:58 Dose: 150 mg Sitagliptin Phosphate (Januvia) 50 mg PO DAILY [facility] Last Admin: 10/20/18 08:45 Dose: 50 mg - Labs Labs: 10/20/18 04:30 10/20/18 04:30 - Skin Additional comments: Systemic exam as per Dr Albert Musculoskleletal stance/gait- defrred ROM L knee p;ainless today/no effusion Rom R knee painless mpo effusion no siginicant nuchal rigidity + paarcervical spasm(mild) restricted ROM C spine Assessment and Plan - Assessment and Plan (Free Text) Assessment: A- no evidence for sepsis in either knees L knee aspirate noted; no clinical eveidence for L knee sepsis pt still woityh discomfort and restricted ROM LC spine P_ continue conservative mgmt Plan: A- no evidence for acute knee sepsis bilaterally L klnee aspirate reviewed- no evidence for sepsis pt still with C spine discomfort CT C spine reveals evdince for DJD Cspine P- orthopedically stable no need for surg intervention to knees conservative mgmt for Cspine (deferred toDR mangia- r/o meningitis picture)
--- NOTE | 2018-10-20 13:49 | CP.PCM.PN ---
Subjective - Date & Time of Evaluation Date of Evaluation: 10/20/18 Time of Evaluation: 13:51 - Subjective Subjective: Patient condition improving. more AA no new c/o Patient better on empiric antibx rx. No specific source of infection possible septic arthropathy. Culture pending. Consultants appreciated. Objective - Vital Signs/Intake and Output Vital Signs (last 24 hours): Temp Pulse Resp BP Pulse Ox 98.2 F 84 22 132/63 98 10/20/18 12:00 10/20/18 12:00 10/20/18 12:00 10/20/18 12:00 10/20/18 12:00 Intake and Output: 10/20/18 10/20/18 11:59 23:59 Intake Total 2220 500 Output Total 1200 200 Balance 1020 300 - Medications Medications: Current Medications Acetaminophen (Tylenol 325mg Tab) 650 mg PO Q4 PRN PRN Reason: Fever >100.4 F Acetaminophen (Tylenol 325mg Tab) 650 mg PO Q4 PRN PRN Reason: Pain, Mild (1-3) Amlodipine Besylate (Norvasc) 10 mg PO DAILY [facility] Last Admin: 10/20/18 08:46 Dose: 10 mg Aspirin (Ecotrin) 81 mg PO DAILY [facility] Last Admin: 10/20/18 08:43 Dose: 81 mg Atorvastatin Calcium (Lipitor) 10 mg PO HS [facility] Last Admin: 10/19/18 21:48 Dose: 10 mg Cyanocobalamin (Vitamin B12 1000 Mcg Tab) 1,000 mcg PO DAILY [facility] Last Admin: 10/20/18 08:47 Dose: 1,000 mcg Ezetimibe (Zetia) 10 mg PO HS [facility] Last Admin: 10/19/18 21:48 Dose: 10 mg Enoxaparin Sodium (Lovenox) 40 mg SC DAILY [facility]; Protocol Last Admin: 10/20/18 08:46 Dose: 40 mg Ergocalciferol (Drisdol 50,000 Intl Units Cap) 1 cap PO MO [facility] Glipizide (Glucotrol Xl) 10 mg PO BID [facility] Last Admin: 10/20/18 08:48 Dose: 10 mg Vancomycin HCl 1 gm/ Sodium (Chloride) 250 mls @ 166.667 mls/hr IVPB DAILY [facility]; Protocol Last Admin: 10/20/18 10:34 Dose: 166.667 mls/hr Ceftriaxone Sodium 2 gm/ (Sodium Chloride) 100 mls @ 100 mls/hr IVPB DAILY [facility] Last Admin: 10/20/18 08:46 Dose: 100 mls/hr Insulin Human Lispro (Humalog) 0 units SC ACHS [facility]; Protocol Last Admin: 10/20/18 12:28 Dose: 3 units Ketorolac Tromethamine (Toradol) 30 mg IVP Q6 PRN PRN Reason: Pain, severe (8-10) Ketorolac Tromethamine (Toradol) 15 mg IVP Q6 PRN PRN Reason: Pain, moderate (4-7) Last Admin: 10/20/18 11:53 Dose: 15 mg Lisinopril (Zestril) 40 mg PO DAILY [facility] Last Admin: 10/20/18 08:47 Dose: 40 mg Metformin HCl (Glucophage) 1,000 mg PO BID [facility] Last Admin: 10/20/18 08:45 Dose: 1,000 mg Pantoprazole Sodium (Protonix Inj) 40 mg IVP DAILY [facility] Last Admin: 10/20/18 08:46 Dose: 40 mg Pregabalin (Lyrica) 150 mg PO Q12 [facility] Last Admin: 10/20/18 08:58 Dose: 150 mg Sitagliptin Phosphate (Januvia) 50 mg PO DAILY [facility] Last Admin: 10/20/18 08:45 Dose: 50 mg - Labs Labs: 10/20/18 04:30 10/20/18 04:30 - Constitutional Appears: Chronically Ill - Head Exam Head Exam: ATRAUMATIC, NORMAL INSPECTION, NORMOCEPHALIC - Eye Exam Eye Exam: Normal appearance - Neck Exam Neck Exam: Full ROM - Respiratory Exam Respiratory Exam: Decreased Breath Sounds - Cardiovascular Exam Cardiovascular Exam: REGULAR RHYTHM, +S1, +S2 - GI/Abdominal Exam GI & Abdominal Exam: Soft - Extremities Exam Additional comments: mild tenderness in lt knee. - Neurological Exam Neurological Exam: Alert, Awake - Psychiatric Exam Psychiatric exam: Normal Affect - Skin Skin Exam: Normal Color Assessment and Plan (1) Encephalopathy acute Status: Acute (2) Delirium Status: Acute (3) Diabetes 1.5, managed as type 2 Status: Acute (4) Hernia of abdominal wall Status: Acute (5) Arthropathy Status: Acute
--- NOTE | 2018-10-20 15:02 | CT ---
Date of service: 10/20/2018 PROCEDURE: CT of the left knee. HISTORY: Left knee edema and pain COMPARISON: Correlation made with concurrent radiographs left knee 10/19/2018 TECHNIQUE: Contiguous axial images of the left knee were obtained. Coronal and sagittal reformats were generated. Radiation dose: Total exam DLP = 459.8 mGy-cm. This CT exam was performed using one or more of the following dose reduction techniques: Automated exposure control, adjustment of the mA and/or kV according to patient size, and/or use of iterative reconstruction technique. FINDINGS: BONES: The current study reveals no evidence of acute displaced fracture nor dislocation. The osseous structures appear intact. No obvious cortical destructive changes. There is significant joint space narrowing lateral greater than medial with mild subchondral sclerosis with marginal medial and lateral osteophyte formation.. Additionally, there also appears to be some minor calcifications along the anterior joint space margin of the lateral compartment suggesting chondrocalcinosis. Clinic correlation recommended. Posterior patellar osteophyte formation is also present. SOFT TISSUES: There is a moderate-sized joint effusion. Note that the possibility of superinfection cannot be excluded. Minimal infiltration changes seen in the tissues most pronounced at the level of the femoral condyles extending to the joint space margin and less so just below the joint space. Vascular calcifications are present. IMPRESSION: No evidence of acute displaced fracture nor dislocation. No definitive cortical destructive changes. Significant tricompartmental degenerative osteoarthritis. Moderate-sized joint effusion; possibility of superinfection cannot be excluded. Clinical correlation recommended. Mild infiltration changes are seen within the subcutaneous tissues most pronounced at the level of the femoral condyles extending to the joint space margin and to a lesser degree just below the joint space margin
[2018-10-20 15:51] LABS: URINE BILIRUBIN NEGATIVE (NEGATIVE); URINE BLOOD NEGATIVE (NEGATIVE); URINE CLARITY CLEAR (Clear); URINE COLOR STRAW (YELLOW); URINE GLUCOSE (UA) 50 mg/dL (NEGATIVE); URINE LEUKOCYTE ESTERASE NEG Leu/uL (Negative); URINE PROTEIN 30 mg/dL (NEGATIVE); URINE UROBILINOGEN 0.2-1.0 mg/dL (0.2-1.0)
[2018-10-21] MEDS: Enoxaparin 40 mg Syringe SC SCH (09:45)
[2018-10-21] MEDS: GlipiZIDE 10 mg SR Tab PO SCH ×2 (09:49→16:48)
[2018-10-21] MEDS: Insulin Lispro (humaLOG) 100 Units/ml Inj SC SCH ×4 (09:51→21:34)
[2018-10-21 10:02] LABS: BASO # 0.1 K/uL (0.0-0.2); EOS # 0.1 K/uL (0.0-0.7); EOS % 1.2 % (0.0-4.0); HEMOGLOBIN 10.4 g/dL (12.0-18.0); MEAN CELL VOLUME 92.5 fl (80.0-94.0); MEAN CORPUSCULAR HGB CONC 33.5 g/dL (33.0-37.0); MEAN PLATELET VOLUME 7.6 fl (7.2-11.7); MONO # 0.9 K/uL (0.0-0.8); MONO % 10.9 % (0.0-10.0); NEUT # 5.9 K/uL (1.8-7.0); NEUT % 73.9 % (50.0-75.0); RBC 3.36 Mil/uL (4.40-5.90); RED CELL DISTRIBUTION WIDTH 12.9 % (11.5-14.5)
[2018-10-21] MEDS: cefTRIAXone 2 GM in Sodium Chloride 0.9% 100 ML IVPB SCH (10:02)
[2018-10-21 12:03] LABS: CALCIUM 8.7 mg/dL (8.4-10.2)
--- NOTE | 2018-10-21 12:53 | CP.PCM.PN ---
Subjective - Date & Time of Evaluation Date of Evaluation: 10/21/18 Time of Evaluation: 12:55 - Subjective Subjective: Improving AA. still c/o pain in lt knee. The culture are negative.The nature of the arthropathy and the delirium is not clear. The patient responds well to the empiric rx. Objective - Vital Signs/Intake and Output Vital Signs (last 24 hours): Temp Pulse Resp BP Pulse Ox 97.3 F L 62 20 132/78 98 10/21/18 08:56 10/21/18 08:56 10/21/18 08:56 10/21/18 08:56 10/21/18 08:56 - Medications Medications: Current Medications Acetaminophen (Tylenol 325mg Tab) 650 mg PO Q4 PRN PRN Reason: Fever >100.4 F Acetaminophen (Tylenol 325mg Tab) 650 mg PO Q4 PRN PRN Reason: Pain, Mild (1-3) Amlodipine Besylate (Norvasc) 10 mg PO DAILY [facility] Last Admin: 10/21/18 09:49 Dose: 10 mg Aspirin (Ecotrin) 81 mg PO DAILY [facility] Last Admin: 10/21/18 09:49 Dose: 81 mg Atorvastatin Calcium (Lipitor) 10 mg PO HS [facility] Last Admin: 10/20/18 21:06 Dose: 10 mg Cyanocobalamin (Vitamin B12 1000 Mcg Tab) 1,000 mcg PO DAILY [facility] Last Admin: 10/21/18 09:53 Dose: 1,000 mcg Ezetimibe (Zetia) 10 mg PO HS [facility] Last Admin: 10/20/18 21:06 Dose: 10 mg Enoxaparin Sodium (Lovenox) 40 mg SC DAILY [facility]; Protocol Last Admin: 10/21/18 09:45 Dose: 40 mg Ergocalciferol (Drisdol 50,000 Intl Units Cap) 1 cap PO MO [facility] Glipizide (Glucotrol Xl) 10 mg PO BID [facility] Last Admin: 10/21/18 09:49 Dose: 10 mg Vancomycin HCl 1 gm/ Sodium (Chloride) 250 mls @ 166.667 mls/hr IVPB DAILY [facility]; Protocol Last Admin: 10/21/18 10:02 Dose: 166.667 mls/hr Ceftriaxone Sodium 2 gm/ (Sodium Chloride) 100 mls @ 100 mls/hr IVPB DAILY [facility] Last Admin: 10/21/18 10:02 Dose: 100 mls/hr Insulin Human Lispro (Humalog) 0 units SC ACHS [facility]; Protocol Last Admin: 10/21/18 09:51 Dose: Not Given Ketorolac Tromethamine (Toradol) 30 mg IVP Q6 PRN PRN Reason: Pain, severe (8-10) Ketorolac Tromethamine (Toradol) 15 mg IVP Q6 PRN PRN Reason: Pain, moderate (4-7) Last Admin: 10/21/18 05:54 Dose: 15 mg Lisinopril (Zestril) 40 mg PO DAILY [facility] Last Admin: 10/21/18 09:53 Dose: 40 mg Metformin HCl (Glucophage) 1,000 mg PO BID [facility] Last Admin: 10/21/18 09:49 Dose: 1,000 mg Pantoprazole Sodium (Protonix Inj) 40 mg IVP DAILY [facility] Last Admin: 10/21/18 09:45 Dose: 40 mg Pregabalin (Lyrica) 150 mg PO Q12 [facility] Last Admin: 10/21/18 10:01 Dose: 150 mg Sitagliptin Phosphate (Januvia) 50 mg PO DAILY [facility] Last Admin: 10/21/18 09:52 Dose: 50 mg - Labs Labs: 10/21/18 09:40 10/21/18 09:40 - Constitutional Appears: Chronically Ill - Head Exam Head Exam: ATRAUMATIC, NORMAL INSPECTION, NORMOCEPHALIC - Eye Exam Eye Exam: Normal appearance - ENT Exam ENT Exam: Mucous Membranes Moist - Neck Exam Neck Exam: Full ROM - Respiratory Exam Respiratory Exam: Decreased Breath Sounds - Cardiovascular Exam Cardiovascular Exam: REGULAR RHYTHM, +S1, +S2 - GI/Abdominal Exam GI & Abdominal Exam: Soft - Extremities Exam Additional comments: Still same edema and tenderness in the lt knee. - Neurological Exam Neurological Exam: Alert, Awake, Oriented x3 - Psychiatric Exam Psychiatric exam: Flat Affect - Skin Skin Exam: Normal Color Assessment and Plan (1) Encephalopathy acute Status: Acute (2) Delirium Status: Acute (3) Diabetes 1.5, managed as type 2 Status: Acute (4) Hernia of abdominal wall Status: Acute (5) Arthropathy Status: Acute (6) Debility Status: Acute (7) Debility Status: Acute
--- NOTE | 2018-10-21 15:12 | CP.PCM.PN ---
Subjective - Date & Time of Evaluation Date of Evaluation: 10/21/18 Time of Evaluation: 08:00 - Subjective Subjective: more alert less fever all cultures negative Procalcitonin > 4 Objective - Vital Signs/Intake and Output Vital Signs (last 24 hours): Temp Pulse Resp BP Pulse Ox 97.3 F L 62 20 132/78 98 10/21/18 08:56 10/21/18 08:56 10/21/18 08:56 10/21/18 08:56 10/21/18 08:56 - Medications Medications: Current Medications Acetaminophen (Tylenol 325mg Tab) 650 mg PO Q4 PRN PRN Reason: Fever >100.4 F Acetaminophen (Tylenol 325mg Tab) 650 mg PO Q4 PRN PRN Reason: Pain, Mild (1-3) Amlodipine Besylate (Norvasc) 10 mg PO DAILY [facility] Last Admin: 10/21/18 09:49 Dose: 10 mg Aspirin (Ecotrin) 81 mg PO DAILY [facility] Last Admin: 10/21/18 09:49 Dose: 81 mg Atorvastatin Calcium (Lipitor) 10 mg PO HS [facility] Last Admin: 10/20/18 21:06 Dose: 10 mg Cyanocobalamin (Vitamin B12 1000 Mcg Tab) 1,000 mcg PO DAILY [facility] Last Admin: 10/21/18 09:53 Dose: 1,000 mcg Ezetimibe (Zetia) 10 mg PO HS [facility] Last Admin: 10/20/18 21:06 Dose: 10 mg Enoxaparin Sodium (Lovenox) 40 mg SC DAILY [facility]; Protocol Last Admin: 10/21/18 09:45 Dose: 40 mg Ergocalciferol (Drisdol 50,000 Intl Units Cap) 1 cap PO MO [facility] Glipizide (Glucotrol Xl) 10 mg PO BID [facility] Last Admin: 10/21/18 09:49 Dose: 10 mg Vancomycin HCl 1 gm/ Sodium (Chloride) 250 mls @ 166.667 mls/hr IVPB DAILY [facility]; Protocol Last Admin: 10/21/18 10:02 Dose: 166.667 mls/hr Ceftriaxone Sodium 2 gm/ (Sodium Chloride) 100 mls @ 100 mls/hr IVPB DAILY [facility] Last Admin: 10/21/18 10:02 Dose: 100 mls/hr Insulin Human Lispro (Humalog) 0 units SC ACHS [facility]; Protocol Last Admin: 10/21/18 12:54 Dose: 1 units Ketorolac Tromethamine (Toradol) 30 mg IVP Q6 PRN PRN Reason: Pain, severe (8-10) Ketorolac Tromethamine (Toradol) 15 mg IVP Q6 PRN PRN Reason: Pain, moderate (4-7) Last Admin: 10/21/18 12:53 Dose: 15 mg Lisinopril (Zestril) 40 mg PO DAILY [facility] Last Admin: 10/21/18 09:53 Dose: 40 mg Metformin HCl (Glucophage) 1,000 mg PO BID [facility] Last Admin: 10/21/18 09:49 Dose: 1,000 mg Pantoprazole Sodium (Protonix Inj) 40 mg IVP DAILY [facility] Last Admin: 10/21/18 09:45 Dose: 40 mg Pregabalin (Lyrica) 150 mg PO Q12 [facility] Last Admin: 10/21/18 10:01 Dose: 150 mg Sitagliptin Phosphate (Januvia) 50 mg PO DAILY [facility] Last Admin: 10/21/18 09:52 Dose: 50 mg - Labs Labs: 10/21/18 09:40 10/21/18 09:40 - Constitutional Appears: Non-toxic, Chronically Ill - Head Exam Head Exam: NORMOCEPHALIC - Eye Exam Eye Exam: absent: Scleral icterus - ENT Exam ENT Exam: Mucous Membranes Dry - Neck Exam Neck Exam: absent: Lymphadenopathy - Respiratory Exam Respiratory Exam: Decreased Breath Sounds, Clear to Ausculation Bilateral - Cardiovascular Exam Cardiovascular Exam: REGULAR RHYTHM, +S1, +S2 - GI/Abdominal Exam GI & Abdominal Exam: Distended, Soft - Rectal Exam Rectal Exam: Deferred - Exam Exam: NORMAL INSPECTION - Extremities Exam Extremities Exam: absent: Pedal Edema - Back Exam Back Exam: tenderness, vertebral tenderness. absent: CVA tenderness (L), CVA tenderness (R), paraspinal tenderness - Neurological Exam Neurological Exam: Alert, Awake, Oriented x3 - Psychiatric Exam Psychiatric exam: Depressed - Skin Skin Exam: Dry Assessment and Plan (1) Delirium Status: Acute (2) Diabetes 1.5, managed as type 2 Status: Acute (3) Effusion, left knee Status: Acute (4) Effusion, right knee Status: Acute (5) Encephalopathy acute Status: Acute (6) Hernia of abdominal wall Status: Acute (7) Neck pain Status: Acute - Assessment and Plan (Free Text) Assessment: OK to d/c isolation as all cultures negative and no evidence of meningitis however patient came with Fever AMS and found to have Leukocytosis and Procalcitonin of 4 +_ therefore would cont rx for sepsis consider echo if not done cont IV antibiotics
[2018-10-22 07:42] LABS: HEPATITIS B SURFACE AG Negative (NEGATIVE)
[2018-10-22 07:48] LABS: HEPATITIS A IGM NEGATIVE (NEGATIVE); HEPATITIS B CORE AB NEGATIVE (NEGATIVE)
[2018-10-22 07:59] LABS: HEPATITIS C ANTIBODY NEGATIVE (NEGATIVE)
[2018-10-22] MEDS: Insulin Lispro (humaLOG) 100 Units/ml Inj SC SCH ×4 (08:12→22:20)
[2018-10-22] MEDS: cefTRIAXone 2 GM in Sodium Chloride 0.9% 100 ML IVPB SCH (08:58)
[2018-10-22] MEDS: Enoxaparin 40 mg Syringe SC SCH (08:59)
[2018-10-22] MEDS: GlipiZIDE 10 mg SR Tab PO SCH ×2 (09:00→17:43)
--- NOTE | 2018-10-22 09:02 | CP.PCM.PN ---
Subjective - Date & Time of Evaluation Date of Evaluation: 10/22/18 Time of Evaluation: 07:30 - Subjective Subjective: Patient seen and examined at bedside comfortable. He reports pain continues to improve. No other complaints. Denies CP/SOB/fever/dizziness. Objective - Vital Signs/Intake and Output Vital Signs (last 24 hours): Temp Pulse Resp BP Pulse Ox 97.1 F L 65 20 123/71 96 10/22/18 08:39 10/22/18 08:39 10/22/18 08:39 10/22/18 08:39 10/22/18 08:39 - Medications Medications: Current Medications Acetaminophen (Tylenol 325mg Tab) 650 mg PO Q4 PRN PRN Reason: Fever >100.4 F Acetaminophen (Tylenol 325mg Tab) 650 mg PO Q4 PRN PRN Reason: Pain, Mild (1-3) Amlodipine Besylate (Norvasc) 10 mg PO DAILY [facility] Last Admin: 10/22/18 08:59 Dose: 10 mg Aspirin (Ecotrin) 81 mg PO DAILY [facility] Last Admin: 10/22/18 09:00 Dose: 81 mg Atorvastatin Calcium (Lipitor) 10 mg PO HS [facility] Last Admin: 10/21/18 21:31 Dose: 10 mg Cyanocobalamin (Vitamin B12 1000 Mcg Tab) 1,000 mcg PO DAILY [facility] Last Admin: 10/22/18 09:00 Dose: 1,000 mcg Ezetimibe (Zetia) 10 mg PO HS [facility] Last Admin: 10/21/18 21:31 Dose: 10 mg Enoxaparin Sodium (Lovenox) 40 mg SC DAILY [facility]; Protocol Last Admin: 10/22/18 08:59 Dose: 40 mg Ergocalciferol (Drisdol 50,000 Intl Units Cap) 1 cap PO MO [facility] Glipizide (Glucotrol Xl) 10 mg PO BID [facility] Last Admin: 10/22/18 09:00 Dose: 10 mg Ceftriaxone Sodium 2 gm/ (Sodium Chloride) 100 mls @ 100 mls/hr IVPB DAILY [facility] Last Admin: 10/22/18 08:58 Dose: 100 mls/hr Insulin Human Lispro (Humalog) 0 units SC [facility]; Protocol Last Admin: 10/22/18 08:12 Dose: Not Given Ketorolac Tromethamine (Toradol) 30 mg IVP Q6 PRN PRN Reason: Pain, severe (8-10) Ketorolac Tromethamine (Toradol) 15 mg IVP Q6 PRN PRN Reason: Pain, moderate (4-7) Last Admin: 10/21/18 21:43 Dose: 15 mg Lisinopril (Zestril) 40 mg PO DAILY [facility] Last Admin: 10/22/18 09:01 Dose: 40 mg Metformin HCl (Glucophage) 1,000 mg PO BID [facility] Last Admin: 10/22/18 09:00 Dose: 1,000 mg Pantoprazole Sodium (Protonix Inj) 40 mg IVP DAILY [facility] Last Admin: 10/22/18 08:58 Dose: 40 mg Pregabalin (Lyrica) 150 mg PO Q12 [facility] Last Admin: 10/21/18 21:34 Dose: 150 mg Sitagliptin Phosphate (Januvia) 50 mg PO DAILY [facility] Last Admin: 10/22/18 08:59 Dose: 50 mg - Labs Labs: 10/21/18 09:40 10/21/18 09:40 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 - Back Exam Additional comments: LLE: mild knee swelling and effusion mild tenderness anteriorly sensation intact SP/DP/TN motor intact EHL/FHL pedal pulse intact calf soft NT RLE: minimal knee swelling and effusion no tenderness sensation intact SP/DP/TN motor intact EHL/FHL pedal pulse intact calf soft NT Assessment and Plan (1) Pseudogout involving multiple joints Assessment & Plan: -Calcium pyrophosphate isolated from left knee synovial fluid aspirate -Patient's pain improved following aspiration -NSIAD's prn -PT/OT WBAT, ROM and strengthening -If patient's symptoms worsen, we will consider arthroscopic washout -above d/w Dr. Poe in agreement Status: Acute
--- NOTE | 2018-10-22 13:37 | CP.PCM.PN ---
Subjective - Date & Time of Evaluation Date of Evaluation: 10/22/18 Time of Evaluation: 13:39 - Subjective Subjective: Patient general condition improving More AA Severe debilty secondary to the bl arthropathy The encephalopathy is multifactorial, probable metabolic The arthoropathy of unknown origin Will continue present empiric rx since the patient improving well Continue antibx for a total of 10 days Objective - Vital Signs/Intake and Output Vital Signs (last 24 hours): Temp Pulse Resp BP Pulse Ox 97.1 F L 65 20 123/71 96 10/22/18 08:39 10/22/18 08:39 10/22/18 08:39 10/22/18 08:39 10/22/18 08:39 - Medications Medications: Current Medications Acetaminophen (Tylenol 325mg Tab) 650 mg PO Q4 PRN PRN Reason: Fever >100.4 F Acetaminophen (Tylenol 325mg Tab) 650 mg PO Q4 PRN PRN Reason: Pain, Mild (1-3) Amlodipine Besylate (Norvasc) 10 mg PO DAILY [facility] Last Admin: 10/22/18 08:59 Dose: 10 mg Aspirin (Ecotrin) 81 mg PO DAILY [facility] Last Admin: 10/22/18 09:00 Dose: 81 mg Atorvastatin Calcium (Lipitor) 10 mg PO HS [facility] Last Admin: 10/21/18 21:31 Dose: 10 mg Cyanocobalamin (Vitamin B12 1000 Mcg Tab) 1,000 mcg PO DAILY [facility] Last Admin: 10/22/18 09:00 Dose: 1,000 mcg Ezetimibe (Zetia) 10 mg PO HS [facility] Last Admin: 10/21/18 21:31 Dose: 10 mg Enoxaparin Sodium (Lovenox) 40 mg SC DAILY [facility]; Protocol Last Admin: 10/22/18 08:59 Dose: 40 mg Ergocalciferol (Drisdol 50,000 Intl Units Cap) 1 cap PO MO [facility] Glipizide (Glucotrol Xl) 10 mg PO BID [facility] Last Admin: 10/22/18 09:00 Dose: 10 mg Ceftriaxone Sodium 2 gm/ (Sodium Chloride) 100 mls @ 100 mls/hr IVPB DAILY [facility] Last Admin: 10/22/18 08:58 Dose: 100 mls/hr Insulin Human Lispro (Humalog) 0 units SC [facility]; Protocol Last Admin: 10/22/18 12:27 Dose: 2 units Ketorolac Tromethamine (Toradol) 30 mg IVP Q6 PRN PRN Reason: Pain, severe (8-10) Ketorolac Tromethamine (Toradol) 15 mg IVP Q6 PRN PRN Reason: Pain, moderate (4-7) Last Admin: 10/21/18 21:43 Dose: 15 mg Lisinopril (Zestril) 40 mg PO DAILY [facility] Last Admin: 10/22/18 09:01 Dose: 40 mg Metformin HCl (Glucophage) 1,000 mg PO BID [facility] Last Admin: 10/22/18 09:00 Dose: 1,000 mg Pantoprazole Sodium (Protonix Inj) 40 mg IVP DAILY [facility] Last Admin: 10/22/18 08:58 Dose: 40 mg Pregabalin (Lyrica) 150 mg PO Q12 [facility] Last Admin: 10/22/18 09:03 Dose: 150 mg Sitagliptin Phosphate (Januvia) 50 mg PO DAILY [facility] Last Admin: 10/22/18 08:59 Dose: 50 mg - Labs Labs: 10/21/18 09:40 10/21/18 09:40 - Constitutional Appears: Chronically Ill - Head Exam Head Exam: ATRAUMATIC, NORMAL INSPECTION, NORMOCEPHALIC - Eye Exam Eye Exam: Normal appearance - ENT Exam ENT Exam: Mucous Membranes Moist - Neck Exam Neck Exam: Full ROM - Respiratory Exam Respiratory Exam: Decreased Breath Sounds - Cardiovascular Exam Cardiovascular Exam: REGULAR RHYTHM, +S1, +S2 - GI/Abdominal Exam GI & Abdominal Exam: Soft, Normal Bowel Sounds - Extremities Exam Extremities Exam: Tenderness Additional comments: lt knee improving still same tenderness - Neurological Exam Neurological Exam: Alert, Awake, Oriented x3 Assessment and Plan (1) Encephalopathy acute Status: Acute (2) Delirium Status: Acute (3) Diabetes 1.5, managed as type 2 Status: Acute (4) Hernia of abdominal wall Status: Acute (5) Arthropathy Status: Acute (6) Debility Status: Acute (7) Debility Status: Acute (8) Encephalopathy, metabolic Status: Acute
--- NOTE | 2018-10-22 14:05 | CP.PCM.PN ---
Subjective - Date & Time of Evaluation Date of Evaluation: 10/22/18 Time of Evaluation: 14:05 - Subjective Subjective: Neuro Follow-Up Note: Mr. Vick was evaluated this afternoon at bedside. He states that today is the first day that he feels better. He currently denies any neck pain or stiffness, denies paresthesias to BUE and BLE. No h/a, dizziness, visual changes, chest pain, sob, abd pain, n/v/d. Objective - Vital Signs/Intake and Output Vital Signs (last 24 hours): Temp Pulse Resp BP Pulse Ox 97.1 F L 65 20 123/71 96 10/22/18 08:39 10/22/18 08:39 10/22/18 08:39 10/22/18 08:39 10/22/18 08:39 - Medications Medications: Current Medications Acetaminophen (Tylenol 325mg Tab) 650 mg PO Q4 PRN PRN Reason: Fever >100.4 F Acetaminophen (Tylenol 325mg Tab) 650 mg PO Q4 PRN PRN Reason: Pain, Mild (1-3) Amlodipine Besylate (Norvasc) 10 mg PO DAILY [facility] Last Admin: 10/22/18 08:59 Dose: 10 mg Aspirin (Ecotrin) 81 mg PO DAILY [facility] Last Admin: 10/22/18 09:00 Dose: 81 mg Atorvastatin Calcium (Lipitor) 10 mg PO HS [facility] Last Admin: 10/21/18 21:31 Dose: 10 mg Cyanocobalamin (Vitamin B12 1000 Mcg Tab) 1,000 mcg PO DAILY [facility] Last Admin: 10/22/18 09:00 Dose: 1,000 mcg Ezetimibe (Zetia) 10 mg PO HS [facility] Last Admin: 10/21/18 21:31 Dose: 10 mg Enoxaparin Sodium (Lovenox) 40 mg SC DAILY [facility]; Protocol Last Admin: 10/22/18 08:59 Dose: 40 mg Ergocalciferol (Drisdol 50,000 Intl Units Cap) 1 cap PO MO MICHAELA Glipizide (Glucotrol Xl) 10 mg PO BID [facility] Last Admin: 10/22/18 09:00 Dose: 10 mg Ceftriaxone Sodium 2 gm/ (Sodium Chloride) 100 mls @ 100 mls/hr IVPB DAILY [facility] Last Admin: 10/22/18 08:58 Dose: 100 mls/hr Insulin Human Lispro (Humalog) 0 units SC ACHS [facility]; Protocol Last Admin: 10/22/18 12:27 Dose: 2 units Ketorolac Tromethamine (Toradol) 30 mg IVP Q6 PRN PRN Reason: Pain, severe (8-10) Ketorolac Tromethamine (Toradol) 15 mg IVP Q6 PRN PRN Reason: Pain, moderate (4-7) Last Admin: 10/21/18 21:43 Dose: 15 mg Lisinopril (Zestril) 40 mg PO DAILY [facility] Last Admin: 10/22/18 09:01 Dose: 40 mg Metformin HCl (Glucophage) 1,000 mg PO BID [facility] Last Admin: 10/22/18 09:00 Dose: 1,000 mg Pantoprazole Sodium (Protonix Inj) 40 mg IVP DAILY [facility] Last Admin: 10/22/18 08:58 Dose: 40 mg Pregabalin (Lyrica) 150 mg PO Q12 [facility] Last Admin: 10/22/18 09:03 Dose: 150 mg Sitagliptin Phosphate (Januvia) 50 mg PO DAILY [facility] Last Admin: 10/22/18 08:59 Dose: 50 mg - Labs Labs: 10/21/18 09:40 10/21/18 09:40 - Constitutional Appears: Well, Non-toxic, No Acute Distress - Head Exam Head Exam: ATRAUMATIC, NORMAL INSPECTION, NORMOCEPHALIC - Eye Exam Eye Exam: EOMI, Normal appearance, PERRL Pupil Exam: NORMAL ACCOMODATION, PERRL - ENT Exam ENT Exam: Mucous Membranes Moist, Normal Exam - Neck Exam Neck Exam: Full ROM, Normal Inspection - Respiratory Exam Respiratory Exam: NORMAL BREATHING PATTERN - Extremities Exam Extremities Exam: absent: Calf Tenderness, Full ROM (weakness BLE 2/2 deocnditioning), Pedal Edema - Neurological Exam Neurological Exam: Alert, Awake, CN II-XII Intact, Oriented x3, Reflexes Normal Neuro motor strength exam: Left Upper Extremity: 5, Right Upper Extremity: 5, Left Lower Extremity: 3, Right Lower Extremity: 4 Additional comments: Speech clear, fluid Weakness noted to LLE No Kernigs or Brudzinski noted No sensory deficits; vibration intact No tremors or clonus - Psychiatric Exam Psychiatric exam: Normal Affect, Normal Mood - Skin Skin Exam: Normal Color Assessment and Plan (1) Neck pain Assessment & Plan: Mr. Vick's neck pain has resolved and he has no complaints of any paresthesias. All imaging was reviewed; C-Spine CT shows degenerative changes to C5-C6. We can hold off on the C-Spine MRI for now; pt in agreement to have it done if his neck pain returns or worsens. Continue current management. He may benefit from rehab upon discharge. May reconsult neuro prn. Thank you for allowing us to participate in this pt's care. Case discussed with Dr. Rasmussen. Status: Acute
[2018-10-22 16:52] LABS: LYME IGM NEGATIVE (NEGATIVE)
[2018-10-22 17:06] LABS: LYME IGG NEGATIVE (NEGATIVE)
[2018-10-22] MEDS ORDERED: Ergocalciferol 50,000 Intl Units Cap PO SCH (21:09)
[2018-10-22 23:30] VITALS: RESP 20
[2018-10-23] MEDS: Insulin Lispro (humaLOG) 100 Units/ml Inj SC SCH ×4 (07:35→22:00)
--- NOTE | 2018-10-23 09:10 | CP.PCM.PN ---
Subjective - Date & Time of Evaluation Date of Evaluation: 10/23/18 Time of Evaluation: 08:00 - Subjective Subjective: Patient seen and examined at bedside comfortable. Pain has significantly improved following knee aspiration. No new complaints. Objective - Vital Signs/Intake and Output Vital Signs (last 24 hours): Temp Pulse Resp BP Pulse Ox 98.2 F 66 20 130/73 97 10/23/18 08:18 10/23/18 08:18 10/23/18 08:18 10/23/18 08:18 10/23/18 08:18 - Medications Medications: Current Medications Acetaminophen (Tylenol 325mg Tab) 650 mg PO Q4 PRN PRN Reason: Fever >100.4 F Acetaminophen (Tylenol 325mg Tab) 650 mg PO Q4 PRN PRN Reason: Pain, Mild (1-3) Amlodipine Besylate (Norvasc) 10 mg PO DAILY [facility] Last Admin: 10/22/18 08:59 Dose: 10 mg Aspirin (Ecotrin) 81 mg PO DAILY [facility] Last Admin: 10/22/18 09:00 Dose: 81 mg Atorvastatin Calcium (Lipitor) 10 mg PO [facility] Last Admin: 10/22/18 21:28 Dose: 10 mg Cyanocobalamin (Vitamin B12 1000 Mcg Tab) 1,000 mcg PO DAILY [facility] Last Admin: 10/22/18 09:00 Dose: 1,000 mcg Ezetimibe (Zetia) 10 mg PO HS [facility] Last Admin: 10/22/18 21:28 Dose: 10 mg Enoxaparin Sodium (Lovenox) 40 mg SC DAILY [facility]; Protocol Last Admin: 10/22/18 08:59 Dose: 40 mg Ergocalciferol (Drisdol 50,000 Intl Units Cap) 1 cap PO MO [facility] Last Admin: 10/22/18 20:27 Dose: 1 cap Glipizide (Glucotrol Xl) 10 mg PO BID [facility] Last Admin: 10/22/18 17:43 Dose: 10 mg Ceftriaxone Sodium 2 gm/ (Sodium Chloride) 100 mls @ 100 mls/hr IVPB DAILY [facility] Last Admin: 10/22/18 08:58 Dose: 100 mls/hr Insulin Human Lispro (Humalog) 0 units SC [facility]; Protocol Last Admin: 10/22/18 22:20 Dose: Not Given Ketorolac Tromethamine (Toradol) 30 mg IVP Q6 PRN PRN Reason: Pain, severe (8-10) Ketorolac Tromethamine (Toradol) 15 mg IVP Q6 PRN PRN Reason: Pain, moderate (4-7) Last Admin: 10/21/18 21:43 Dose: 15 mg Lisinopril (Zestril) 40 mg PO DAILY [facility] Last Admin: 10/22/18 09:01 Dose: 40 mg Metformin HCl (Glucophage) 1,000 mg PO BID [facility] Last Admin: 10/22/18 17:43 Dose: 1,000 mg Pantoprazole Sodium (Protonix Inj) 40 mg IVP DAILY [facility] Last Admin: 10/22/18 08:58 Dose: 40 mg Pregabalin (Lyrica) 150 mg PO Q12 [facility] Last Admin: 10/22/18 21:27 Dose: 150 mg Sitagliptin Phosphate (Januvia) 50 mg PO DAILY [facility] Last Admin: 10/22/18 08:59 Dose: 50 mg - Labs Labs: 10/21/18 09:40 10/21/18 09:40 - Extremities Exam Additional comments: LLE: mild knee swelling and effusion mild tenderness anteriorly ROM 0-100 deg sensation intact SP/DP/TN motor intact EHL/FHL pedal pulse intact calf soft NT RLE: minimal knee swelling and effusion no tenderness ROM 0-105 deg sensation intact SP/DP/TN motor intact EHL/FHL pedal pulse intact calf soft NT Assessment and Plan (1) Pseudogout involving multiple joints Assessment & Plan: -pain control, NSIAD's prn -PT/OT WBAT, ROM and strengthening -Orthopedically stable for discharge -above d/w Dr. Poe in agreement Status: Acute
[2018-10-23] MEDS: cefTRIAXone 2 GM in Sodium Chloride 0.9% 100 ML IVPB SCH (09:44)
[2018-10-23] MEDS: Enoxaparin 40 mg Syringe SC SCH (09:44)
[2018-10-23] MEDS: GlipiZIDE 10 mg SR Tab PO SCH ×2 (09:46→17:47)
--- NOTE | 2018-10-23 17:24 | CP.PCM.PN ---
Subjective - Date & Time of Evaluation Date of Evaluation: 10/23/18 Time of Evaluation: 17:24 - Subjective Subjective: Improving well on empiric rx. Still not able to ambulate Severe debility Will continue present rx for a total of 10 days PT Objective - Vital Signs/Intake and Output Vital Signs (last 24 hours): Temp Pulse Resp BP Pulse Ox 97.4 F L 72 20 106/62 97 10/23/18 16:48 10/23/18 16:48 10/23/18 16:48 10/23/18 16:48 10/23/18 16:48 - Medications Medications: Current Medications Acetaminophen (Tylenol 325mg Tab) 650 mg PO Q4 PRN PRN Reason: Fever >100.4 F Acetaminophen (Tylenol 325mg Tab) 650 mg PO Q4 PRN PRN Reason: Pain, Mild (1-3) Amlodipine Besylate (Norvasc) 10 mg PO DAILY [facility] Last Admin: 10/23/18 09:45 Dose: 10 mg Aspirin (Ecotrin) 81 mg PO DAILY [facility] Last Admin: 10/23/18 09:46 Dose: 81 mg Atorvastatin Calcium (Lipitor) 10 mg PO HS [facility] Last Admin: 10/22/18 21:28 Dose: 10 mg Cyanocobalamin (Vitamin B12 1000 Mcg Tab) 1,000 mcg PO DAILY [facility] Last Admin: 10/23/18 09:46 Dose: 1,000 mcg Ezetimibe (Zetia) 10 mg PO HS [facility] Last Admin: 10/22/18 21:28 Dose: 10 mg Enoxaparin Sodium (Lovenox) 40 mg SC DAILY [facility]; Protocol Last Admin: 10/23/18 09:44 Dose: 40 mg Ergocalciferol (Drisdol 50,000 Intl Units Cap) 1 cap PO MO [facility] Last Admin: 10/22/18 20:27 Dose: 1 cap Glipizide (Glucotrol Xl) 10 mg PO BID [facility] Last Admin: 10/23/18 09:46 Dose: 10 mg Ceftriaxone Sodium 2 gm/ (Sodium Chloride) 100 mls @ 100 mls/hr IVPB DAILY [facility] Last Admin: 10/23/18 09:44 Dose: 100 mls/hr Insulin Human Lispro (Humalog) 0 units SC [facility]; Protocol Last Admin: 10/23/18 13:28 Dose: 2 units Ketorolac Tromethamine (Toradol) 30 mg IVP Q6 PRN PRN Reason: Pain, severe (8-10) Ketorolac Tromethamine (Toradol) 15 mg IVP Q6 PRN PRN Reason: Pain, moderate (4-7) Last Admin: 10/21/18 21:43 Dose: 15 mg Lisinopril (Zestril) 40 mg PO DAILY [facility] Last Admin: 10/23/18 09:47 Dose: 40 mg Metformin HCl (Glucophage) 1,000 mg PO BID [facility] Last Admin: 10/23/18 09:45 Dose: 1,000 mg Pantoprazole Sodium (Protonix Inj) 40 mg IVP DAILY [facility] Last Admin: 10/23/18 09:45 Dose: 40 mg Pregabalin (Lyrica) 150 mg PO Q12 [facility] Last Admin: 10/23/18 09:52 Dose: 150 mg Sitagliptin Phosphate (Januvia) 50 mg PO DAILY [facility] Last Admin: 10/23/18 09:46 Dose: 50 mg - Labs Labs: 10/21/18 09:40 10/21/18 09:40 - Constitutional Appears: Chronically Ill - Head Exam Head Exam: ATRAUMATIC, NORMAL INSPECTION, NORMOCEPHALIC - Eye Exam Eye Exam: Normal appearance - Neck Exam Neck Exam: Full ROM - Respiratory Exam Respiratory Exam: Decreased Breath Sounds - Cardiovascular Exam Cardiovascular Exam: REGULAR RHYTHM, +S1, +S2 - GI/Abdominal Exam GI & Abdominal Exam: Soft - Neurological Exam Neurological Exam: Abnormal Gait, Alert, Awake, Oriented x3 - Psychiatric Exam Psychiatric exam: Flat Affect - Skin Skin Exam: Normal Color Assessment and Plan (1) Encephalopathy acute Status: Acute (2) Delirium Status: Acute (3) Diabetes 1.5, managed as type 2 Status: Acute (4) Hernia of abdominal wall Status: Acute (5) Arthropathy Status: Acute (6) Debility Status: Acute (7) Debility Status: Acute (8) Encephalopathy, metabolic Status: Acute
[2018-10-23] MEDS: Lactobacillus Acidophilus 500 MU Cap PO SCH (17:46)
[2018-10-24 06:50] LABS: BASO # 0.1 K/uL (0.0-0.2); BASO % 0.9 % (0.0-2.0); EOS # 0.3 K/uL (0.0-0.7); EOS % 3.5 % (0.0-4.0); HEMOGLOBIN 11.5 g/dL (12.0-18.0); LYMPH # 1.2 K/uL (1.0-4.3); LYMPH % 11.9 % (20.0-40.0); MEAN CELL VOLUME 95.1 fl (80.0-94.0); MEAN CORPUSCULAR HEMOGLOBIN 30.6 pg (27.0-31.0); MEAN CORPUSCULAR HGB CONC 32.1 g/dL (33.0-37.0); MEAN PLATELET VOLUME 7.7 fl (7.2-11.7); MONO % 10.1 % (0.0-10.0); NEUT # 7.4 K/uL (1.8-7.0); NEUT % 73.6 % (50.0-75.0); RBC 3.77 Mil/uL (4.40-5.90)
[2018-10-24 07:32] LABS: CALCIUM 8.9 mg/dL (8.4-10.2)
[2018-10-24] MEDS: Insulin Lispro (humaLOG) 100 Units/ml Inj SC SCH ×3 (07:40→17:09)
[2018-10-24 08:30] VITALS: BP 152/74; PULSE 72; TEMP 98.1; O2SAT 98
[2018-10-24] MEDS ORDERED: Naproxen 500 MG TAB PO SCH (09:00)
[2018-10-24] MEDS ORDERED: GlipiZIDE 5 mg SR Tab PO SCH (09:00)
[2018-10-24 09:44] LABS: IRON 38 ug/dL (49-181)
[2018-10-24] MEDS: Enoxaparin 40 mg Syringe SC SCH (09:50)
[2018-10-24] MEDS: Lactobacillus Acidophilus 500 MU Cap PO SCH ×2 (09:52→16:29)
[2018-10-24 09:53] LABS: % IRON SATURATION 19 % (20-55); TOTAL IRON BINDING CAPACITY 203 ug/dL (250-450)
[2018-10-24] MEDS: cefTRIAXone 2 GM in Sodium Chloride 0.9% 100 ML IVPB SCH (09:53)
--- NOTE | 2018-10-24 12:17 | CP.PCM.DIS ---
Provider - Provider Date of Admission: 10/18/18 19:01 Attending physician: Nelson Albert MD Consults: 10/18/18 19:11 Critical Care Consult Stat Comment: Consulting Provider: Levy Brabosa Consulting Physician: Levy Barbosa Reason for Consult: possible [employer] infection with delerium 10/19/18 10:00 Infectious Disease Consult Routine Comment: Consulting Provider: Sterling Colon Consulting Physician: Sterling Colon Reason for Consult: r/o sepsis; r/o Meningitis 10/19/18 10:03 Neurology Consult Routine Comment: Consulting Provider: Sheryl Rasmussen Consulting Physician: Sheryl Rasmussen Reason for Consult: r/o Meningitis 10/19/18 14:04 Orthopedic Consult Routine Comment: Consulting Provider: Yoni Poe III Consulting Physician: Yoni Poe III Reason for Consult: Bilat knee edema; r/o septic arthritis Time Spent in preparation of Discharge (in minutes): 30 Diagnosis - Discharge Diagnosis (1) Encephalopathy acute Status: Acute (2) Delirium Status: Acute (3) Diabetes 1.5, managed as type 2 Status: Acute (4) Hernia of abdominal wall Status: Acute (5) Arthropathy Status: Acute (6) Debility Status: Acute (7) Debility Status: Acute (8) Encephalopathy, metabolic Status: Acute (9) Pseudogout Status: Acute Hospital Course - Lab Results Lab Results: Micro Results 10/19/18 15:23 Synovial Fluid Gram Stain - Final 10/19/18 15:23 Synovial Fluid Body Fluid Culture - Final No growth. 10/19/18 15:23 Synovial Fluid Gram Stain - Final 10/19/18 15:23 Synovial Fluid Body Fluid Culture - Final No growth. 10/19/18 15:23 Synovial Fluid Gram Stain - Final 10/19/18 15:23 Synovial Fluid Body Fluid Culture - Final No growth. 10/18/18 20:41 Blood Blood Culture - Final NO GROWTH AFTER 5 DAYS 10/18/18 20:41 Blood Gram Stain - Final TEST NOT PERFORMED 10/18/18 19:45 Blood Blood Culture - Final NO GROWTH AFTER 5 DAYS 10/18/18 19:45 Blood Gram Stain - Final TEST NOT PERFORMED 10/20/18 16:00 Naris MRSA Culture (Admit) - Final MRSA NOT DETECTED 10/19/18 08:03 Naris MRSA Culture (Admit) - Final MRSA NOT DETECTED 10/18/18 19:39 Urine Random Urine Culture - Final No Growth (<1,000 CFU/ML) Most Recent Lab Values WBC 10.0 K/uL (4.8-10.8) 10/24/18 05:50 RBC 3.77 Mil/uL (4.40-5.90) L 10/24/18 05:50 Hgb 11.5 g/dL (12.0-18.0) L 10/24/18 05:50 Hct 35.9 % (35.0-51.0) 10/24/18 05:50 MCV 95.1 fl (80.0-94.0) H D 10/24/18 05:50 MCH 30.6 pg (27.0-31.0) 10/24/18 05:50 MCHC 32.1 g/dL (33.0-37.0) L 10/24/18 05:50 RDW 13.0 % (11.5-14.5) 10/24/18 05:50 Plt Count 286 K/uL (130-400) 10/24/18 05:50 MPV 7.7 fl (7.2-11.7) 10/24/18 05:50 Neut % (Auto) 73.6 % (50.0-75.0) 10/24/18 05:50 Lymph % (Auto) 11.9 % (20.0-40.0) L 10/24/18 05:50 Kerr % (Auto) 10.1 % (0.0-10.0) H 10/24/18 05:50 Eos % (Auto) 3.5 % (0.0-4.0) 10/24/18 05:50 Baso % (Auto) 0.9 % (0.0-2.0) 10/24/18 05:50 Neut # (Auto) 7.4 K/uL (1.8-7.0) H 10/24/18 05:50 Lymph # (Auto) 1.2 K/uL (1.0-4.3) 10/24/18 05:50 Kerr # (Auto) 1.0 K/uL (0.0-0.8) H 10/24/18 05:50 Eos # (Auto) 0.3 K/uL (0.0-0.7) 10/24/18 05:50 Baso # (Auto) 0.1 K/uL (0.0-0.2) 10/24/18 05:50 Neutrophils % (Manual) 82 % (42-75) H 10/18/18 17:15 Band Neutrophils % 2 % (0-2) 10/18/18 17:15 Lymphocytes % (Manual) 5 % (20-50) L 10/18/18 17:15 Monocytes % (Manual) 11 % (0-10) H 10/18/18 17:15 Hypersegmented Polys Present 10/18/18 17:15 Toxic Granulation Present 10/18/18 17:15 Platelet Estimate Normal (NORMAL) 10/18/18 17:15 ESR 94 mm/hr (0-20) H 10/19/18 08:37 pO2 37 mm/Hg (30-55) 10/19/18 04:00 VBG pH 7.36 (7.32-7.43) 10/19/18 04:00 VBG pCO2 36 mmHg (40-60) L 10/19/18 04:00 VBG HCO3 20.7 mmol/L 10/19/18 04:00 VBG Total CO2 21.4 mmol/L (22-28) L 10/19/18 04:00 VBG O2 Sat (Calc) 73.2 % (40-65) H 10/19/18 04:00 VBG Base Excess -4.5 mmol/L (0.0-2.0) L 10/19/18 04:00 VBG Potassium 4.3 mmol/L (3.6-5.2) 10/19/18 04:00 Sodium 137.0 mmol/L (132-148) 10/19/18 04:00 Chloride 110.0 mmol/L (98-107) H 10/19/18 04:00 Glucose 144 mg/dL (75-110) H 10/19/18 04:00 Lactate 2.0 mmol/L (0.7-2.1) 10/19/18 04:00 FiO2 21.0 % 10/19/18 04:00 Sodium 138 mmol/l (132-148) 10/24/18 05:50 Potassium 4.1 MMOL/L (3.6-5.0) 10/24/18 05:50 Chloride 100 mmol/L (98-107) 10/24/18 05:50 Carbon Dioxide 25 mmol/L (22-30) 10/24/18 05:50 Anion Gap 17 (10-20) 10/24/18 05:50 BUN 28 mg/dl (9-20) H 10/24/18 05:50 Creatinine 1.5 mg/dl (0.8-1.5) 10/24/18 05:50 Est GFR ( Amer) 56 10/24/18 05:50 Est GFR (Non-Af Amer) 46 10/24/18 05:50 POC Glucose (mg/dL) 119 mg/dL (65-110) H 10/24/18 06:32 Random Glucose 126 mg/dL (75-110) H 10/24/18 05:50 Hemoglobin A1c 6.5 % (4.2-6.5) 10/19/18 05:25 Lactic Acid 1.3 mmol/L (0.7-2.1) 10/20/18 16:24 Uric Acid 6.1 mg/Dl (3.5-8.5) 10/24/18 09:15 Calcium 8.9 mg/dL (8.4-10.2) 10/24/18 05:50 Iron 38 ug/dL (49-181) L 10/24/18 09:11 TIBC 203 ug/dL (250-450) L 10/24/18 09:11 % Saturation 19 % (20-55) L 10/24/18 09:11 Ferritin 65.2 ng/Ml (17.9-464) 10/24/18 09:11 Total Bilirubin 0.5 mg/dl (0.2-1.3) 10/20/18 04:30 AST 59 U/L (17-59) D 10/20/18 04:30 ALT 37 U/L (21-72) 10/20/18 04:30 Alkaline Phosphatase 80 U/L (38-126) 10/20/18 04:30 Ammonia 9 umo/L (16-60) L 10/18/18 21:15 Troponin I < 0.0120 ng/mL (0.00-0.120) 10/18/18 17:15 Total Protein 6.8 G/DL (6.3-8.2) 10/20/18 04:30 Albumin 3.4 g/dL (3.5-5.0) L 10/20/18 04:30 Globulin 3.4 gm/dL (2.2-3.9) 10/20/18 04:30 Albumin/Globulin Ratio 1.0 (1.0-2.1) 10/20/18 04:30 Vitamin B12 > 1000 pg/mL (239-931) H 10/19/18 13:45 Folate 11.8 ng/mL 10/19/18 13:45 Procalcitonin 4.69 NG/ML (0.19-0.49) H 10/19/18 20:23 Venous Blood Potassium 4.3 mmol/L (3.6-5.2) 10/19/18 04:00 Urine Color Straw (YELLOW) 10/20/18 15:23 Urine Clarity Clear (Clear) 10/20/18 15:23 Urine pH 6.0 (5.0-8.0) 10/20/18 15:23 Ur Specific [place] 1.010 (1.003-1.030) 10/20/18 15:23 Urine Protein 30 mg/dL (NEGATIVE) 10/20/18 15:23 Urine Glucose (UA) 50 mg/dL (NEGATIVE) 10/20/18 15:23 Urine Ketones Negative mg/dL (NEGATIVE) 10/20/18 15:23 Urine Blood Negative (NEGATIVE) 10/20/18 15:23 Urine Nitrate Negative (NEGATIVE) 10/20/18 15:23 Urine Bilirubin Negative (NEGATIVE) 10/20/18 15:23 Urine Urobilinogen 0.2-1.0 mg/dL (0.2-1.0) 10/20/18 15:23 Ur Leukocyte Esterase Neg Faith/uL (Negative) 10/20/18 15:23 Urine RBC (Auto) 1 /hpf (0-3) 10/20/18 15:23 Urine Microscopic WBC < 1 /hpf (0-5) 10/20/18 15:23 Ur Squamous Epith Cells 1 /hpf (0-5) 10/18/18 19:39 Urine Bacteria Rare (<OCC) 10/18/18 18:33 Hyaline Casts 0-2 /hpf (0-2) 10/18/18 19:39 Granular Casts (Auto) 1 /lpf (0-1) 10/18/18 19:39 Fluid Type Synovial fluid 10/19/18 16:20 Synovial WBC 03115.0 /mm3 (0.0-150.0) H 10/19/18 16:20 Synovial RBC 737.0 /mm3 (0.0-0.0) H 10/19/18 16:20 Synovial Neutrophils 80.0 % (0-0) H 10/19/18 16:20 Synovial Lymphocytes 10.0 % (0-0) H 10/19/18 16:20 Synov Monos/Macrophage 10 % (0-0) H 10/19/18 16:20 Synovial Fluid Comment Yellowish 10/19/18 16:20 Random Vancomycin 10.5 ug/mL 10/24/18 05:50 Rheumatoid Arth Interp Negative (NEGATIVE) 10/19/18 08:37 YEHUDA Screen Negative (Negative) 10/19/18 08:37 RPR Nonreactive (NONREACTIVE) 10/19/18 13:45 Lyme Disease IgG Ab (IFA) Negative (NEGATIVE) 10/21/18 09:40 Lyme Disease IgM Ab Negative (NEGATIVE) 10/21/18 09:40 Hepatitis A IgM Ab Negative (NEGATIVE) 10/21/18 09:40 Hep Bs Antigen Negative (NEGATIVE) 10/21/18 09:40 Hep B Core IgM Ab Negative (NEGATIVE) 10/21/18 09:40 Hepatitis C Antibody Negative (NEGATIVE) 10/21/18 09:40 HIV-1 Ab Rapid Screen Non reactive (NON REAC) 10/19/18 13:45 Influenza Typ A,B (EIA) Negative for flu a/b (NEGATIVE) 10/18/18 17:15 - Hospital Course Hospital Course: Patient presented with mental status changes, delirium and sever pain in both knees Patient better on empiric antibx rx. No specific source of infection possible septic arthropathy. Pseudogout He still c/o same discomfort in the lt knee. Will continue empiric antibx rx for a total of 10 days, for SNF care today. If no improvement in 1 week consider arthoscopic intervention. Will follow pending w/u. Discharge Exam - Head Exam Head Exam: ATRAUMATIC, NORMAL INSPECTION, NORMOCEPHALIC - Eye Exam Eye Exam: Normal appearance - ENT Exam ENT Exam: Normal External Ear Exam - Neck Exam Neck exam: Full Rom - Respiratory Exam Respiratory Exam: Clear to PA & Lateral - Cardiovascular Exam Cardiovascular Exam: REGULAR RHYTHM, +S1, +S2 - GI/Abdominal Exam GI & Abdominal Exam: Normal Bowel Sounds - Extremities Exam Extremities exam: normal inspection - Neurological Exam Neurological exam: Abnormal Gait, Alert, CN II-XII Intact, Oriented x3 - Psychiatric Exam Psychiatric exam: Flat Affect - Skin Skin Exam: Normal Color Discharge Plan - Discharge Medications Prescriptions: cefTRIAXone 1 gm [Rocephin 1 gram IVPB] 1 gm IVPB DAILY 6 Days #6 bag - Follow Up Plan Condition: GOOD Disposition: REHAB FACILITY/REHAB UNIT Instructions: Neck Pain, Altered Mental Status (DC) Additional Instructions: follow up with primary MD 1 week Referrals: Yoni Poe III, MD [Staff Provider] - Sterling Colon MD [Staff Provider] - Nelson Albert MD [Family Provider] - Sheryl Rasmussen MD [Medical Doctor] -
[2018-10-25 19:30] LABS: ALBUMIN (PEP) 2.7 g/dL (3.8-4.8); ALPHA-1-GLOBULIN (PEP) 0.4 g/dL (0.2-0.3)
--- NOTE | 2018-10-26 12:14 | PQF ---
PROVIDER RESPONSE TEXT: Sepsis ruled out REVIEWER QUERY TEXT: Rule Out Sepsis Clarification Sepsis is documented in the Medical Record but not in Discharge Summary. Please clarify whether: -- Patient has sepsis - Please document confirmed, suspected or probable causative organism - Please document confirmed, suspected or probable localized infection - Please clarify if sepsis is related to a device - Please clarify if sepsis was present on admission -- Sepsis was ruled out (include corresponding diagnosis for patient?s clinical picture and treatment ) -- Patient had sepsis which is resolved -- Other, please specify The patient's Clinical Indicators include: 10/[address] Colon and Dr. Poe documented sepsis. Query created by: Asia Blankenship on 10/25/2018 3:24 PM Electronically signed by: Nelson Albert MD 10/26/2018 12:10 PM
--- NOTE | 2018-10-27 01:46 | PQF ---
PROVIDER RESPONSE TEXT: This Patient had an Acute Renal Failure on admission. REVIEWER QUERY TEXT: Documentation Clarification Your help is requested in clarifying the following clinical documentation, if you can please further specify acute kidney disease: -nephropathy NOS -acute renal insufficiency -acute renal failure The patient's Clinical Indicators include: 10/18 consult documented "acute kidney disease." Query created by: Asia Blankenship on 10/25/2018 3:41 PM Electronically signed by: 10/27/2018 1:43 AM
== END 2018-10-24 18:15 | DRG 548 ==
LOC: H.ER 16:07 → H.ERHOLD 19:01 → H.ICU/CCU 22:03 → H.MEDSURG1 10-20 15:31
PROVIDERS: ADMIT Internal Medicine; ATTEND Internal Medicine
PROC: 0S9D3ZX Drainage of Left Knee Joint, Percutaneous Approach, Diagnostic (ICD-10-PCS; principal; 2018-10-19)
DX: M00.9 Pyogenic arthritis, unspecified (principal); G93.41 Metabolic encephalopathy; E11.10 Type 2 diabetes mellitus with ketoacidosis without coma; N17.9 Acute kidney failure, unspecified; E87.5 Hyperkalemia; M19.90 Unspecified osteoarthritis, unspecified site; I10 Essential (primary) hypertension; M06.9 Rheumatoid arthritis, unspecified; E78.5 Hyperlipidemia, unspecified; E78.00 Pure hypercholesterolemia, unspecified; M25.462 Effusion, left knee; M25.461 Effusion, right knee; K43.9 Ventral hernia without obstruction or gangrene; M54.12 Radiculopathy, cervical region; Z79.82 Long term (current) use of aspirin; Z79.84 Long term (current) use of oral hypoglycemic drugs; R53.81 Other malaise; M11.29 Other chondrocalcinosis, multiple sites; R41.0 Disorientation, unspecified